=== PATIENT | female | born 1985 | race Caucasian/White ===

== ENCOUNTER 2022-05-07 10:51 | Outpatient (REF) | payer MEDICAID, OTHER, SELFPAY ==
--- NOTE | ~2022-05-07 | MM_ITS ---
EXAMINATION: MM DIAGNOSTIC DIGITAL BREAST TOMOSYNTHESIS, BILATERAL TARGETED LEFT BREAST ULTRASOUND CLINICAL INFORMATION: Left breast lump 5 o'clock position for 2 weeks. No nipple discharge. The lifetime risk of breast cancer based on the Tyrer-Cuzick Model is 13.4%. COMPARISON: Mammography: None. TECHNIQUE: Digital breast tomosynthesis is performed in both the craniocaudal and mediolateral oblique views along with computer-aided detection (CAD). Synthesized 2D images are generated from the tomosynthesis. Left breast exaggerated craniocaudal view also performed. Targeted left breast ultrasound. FINDINGS: The breasts are extremely dense, which lowers the sensitivity of mammography (ACR BI-RADS breast composition Category d). There are no significant masses, abnormal calcifications, or other abnormalities. Targeted left breast ultrasound did not demonstrate any abnormal cystic or solid lesions. No region of abnormal distal sound shadowing was appreciated. No edematous change within the parenchyma is noted. Results are discussed with the patient at time of visit. MM/MM tomosynthesis diagnostic BI IMPRESSION: No mammographic or ultrasound evidence of malignancy. ASSESSMENT: BI-RADS 1: Negative. RECOMMENDATION: Clinical management of palpable abnormality. Yearly screening mammogram at age 39. This patient's information was entered into a reminder system with a target due date for their next mammogram.
== END 2022-05-07 10:52 | disposition home or self-care (01) ==
LOC: HO.MAMMO 10:51
PROVIDERS: Visit Provider Pediatrics
DX: N63.23 Unspecified lump in the left breast, lower outer quadrant (principal)
CPT/HCPCS: 76642; 77062; 77066

== ENCOUNTER 2024-02-02 16:15 | Outpatient (REF) | payer MEDICAID, OTHER, SELFPAY ==
[2024-02-03 06:04] LABS: CT PCR NOT DETECTED (Not Detect.); NG PCR NOT DETECTED (Not Detect.)
== END 2024-02-02 16:16 | disposition home or self-care (01) ==
LOC: HO.CHCLNP 16:15
PROVIDERS: Visit Provider Pediatrics
DX: N76.0 Acute vaginitis (principal)
CPT/HCPCS: 87491; 87591

== ENCOUNTER 2025-01-25 17:34 | Outpatient (REF) | payer MEDICAID, OTHER, SELFPAY ==
--- OUTSIDE RECORDS SUMMARY | 2025-01-25 16:00 | XMS_ITS | Encounter Summary ---
Author Organization [employer] Address [address] [facility] [address] [place] [address] Care Team Providers Care Pets Salesperson Name Role Phone Patricia Zheng MD Primary Care Provider [phone] Encounter Details Date Type Department Care Team ([facility] st Contact Info) Description 01/25/2025 4:00 PM EDT Office Visit [facility] [address] [place], [place] [phone] Patricia Zheng MD [address] [place] [address] Prediabetes (Primary Dx); Flank pain Social History [...] Patient Position: Sitting, BP Cuff Size: Adult) [id number] Temp 99.2 ??F (37.3 ??C) (Oral) Resp [...] documented in this encounter Plan of Treatment Scheduled Orders Name Type Priority Associated Diagnoses Orde r Schedule Culture, Urine, Routine Microbiology Routine Flank pain Ordered: 01/25/2025 CBC auto differential Lab Routine Flank pain [...] Routine 01/25/2025 4:35 PM EDT Flank pain documented in this [...] Media Lot # [id number] Lot# Expiration Date [id number] Urine 01/25/2025 4:35 PM EDT Patricia Zheng MD POINT OF CARE TEST ENTER/EDIT ORDERABLES Final Result documented in this encounter Visit Diagnoses Diagnosis Prediabetes- Primary Other abnormal glucose Flank pain Abdominal pain, unspecified site documented in this encounter Additional Health Concerns Assessment Noted Time PHQ-9 Depression Total Score: 1 04/24/20 22 10:31 AM EST documented as of this encounter Care Teams Pets Salesperson Relationship Specialty Start Date End Date Patricia Zheng MD [address] [place] [id number] PCP - General Family Medicine 11/25/16 documented as of this encounter
--- OUTSIDE RECORDS SUMMARY | 2025-01-25 17:37 | XMS_ITS | Clinical Summary ---
Author Organization [facility] Address [address] [place] [address] Care Team Providers Care Pastrycook'S Assistant Name Role Phone Lazara Foreman MD Primary Care Provider Surgical History Surgery Date Site/Laterality Comments CHOLECYSTECTOMY 2016 PROCEDURE: HISTORICAL CHOLECYSTECTOMY OTHER SURGICAL HISTORY 09/2016 PROCEDURE: GI ENDOSCOPIC ULTRASOUND; COMMENT: upper endoscopic ultrasound for drainage of pancreatic pseudocyst OTHER SURGICAL HISTORY 2016 PROCEDURE: INSERTION OF CHEST TUBE; COMMENT: left pleural effusion VAGINOSCOPY 2012 PROCEDURE: AK COLPOSCOPY CERVIX VAG LOOP ELTRD BX CERVIX Medical History Medical History Date Comments Necrotizing pancreatitis 09/2016 DX:Necr otizing pancreatitis; COMMENT: requiring drainage Pleural effusion 2016 DX:Pleural effu lora; COMMENT: left . requiring chest tube placement Fibroid uterus 2015 DX:Fibroid uteru s; COMMENT: multiple fibroids noted on u/s Short cervix 02/16/2018 DX:Short cervix; COMMENT: 2015 pt was followed by [facility] (janette) for hx leep, cl measured 2.6 the shortest with NO funneling and remained stable with no intervention needed . Pt also had a +FFN during her . Pt delivered full term Pt did not go in to any labor during her . Family History Medical History Relation Name Comments Diabetes Mother Relation Name Status Comments Mother Social History Tobacco Use Types Packs/Day Years Used Date Smoking Tobacco: Never Smokeless Tobacco: Never Alcohol Use Standard Drinks/Week Comments No 0 (1 standard drink = 0.6 oz pur e alcohol) Comments Unknown Sex and Gender Information Value Date Recorded Sex Assigned at Not on file Legal Sex Female 3:33 PM EST Gender Identity Not on file Sexual Orientation Not on file Obstetrics History Plan of Treatment Health Maintenance Due Date Last Done Comments Breast Cancer Screening 1984 Hepatitis B Vaccines (1 of 3 - 19+ 3-dose series) 2003 Cervical Cancer Screening: P ap Smear 03/07/2021 03/07/2018, 03/07/2018 Depression Screening 05/10/2024 COVID-19 Vaccine (1 - 2023-2 5 season) 2025 Influenza Vaccine (#1) 2025 05/16/2018 DTaP,Tdap,and Td Vaccines (2 - Td or Tdap) 05/16/2028 05/16/2018 RSV Immunization Adult Patients (1 - 1-dose 75+ series) 2059 HIB Vaccines Aged Out No longer eligi ble based on patient's age to complete this topic HPV Vaccines Aged Out No longer eligi ble based on patient's age to complete this topic Hepatitis A Vaccines Aged Out No long er eligible based on patient's age to complete this topic IPV Vaccines Aged Out No longer eligi ble based on patient's age to complete this topic MMR Vaccines Aged Out No longer eligi ble based on patient's age to complete this topic Meningococcal ACWY Vaccine Aged Out N o longer eligible based on patient's age to complete this topic Meningococcal B Vaccine Aged Out No l onger eligible based on patient's age to complete this topic Pneumococcal Vaccine: Pediatrics (0 to 5 Years) and At-Risk Patients (6 to 49 Years) Aged Out No longer eligible b ased on patient's age to complete this topic RSV Immunization Patients Under 20 months Aged Out No longer eligible b ased on patient's age to complete this topic Varicella Vaccines Aged Out No longer eligible based on patient's age to complete this topic Procedures Procedure Name Priority Date/Time Associated Diagnosis Comments PAP SMEAR Routine 03/07/2018 from Last 3 Months or Most Recently Relevant to Health Maintenance Results * Pap smear (03/07/2018) 03/07/2018 Narrative HISTORICAL TESTING LAB RESULTING AGENCY - 03/11/2018 12:50 PM EDT [id number] THINPREP PAP, IMAGED: NEGATIVE FOR SQUAMOUS INTRAEPITHELIAL LESION AND MALIGNANCY . RESULT OF APTIMA HIGH RISK HPV ASSAY: NEGATIVE (SEROTYPES 16,18,31,33,35,39,45,51,52,56,58,59,66,68) [place] ANTONIO(ASCP) (CASE ELECTRONICALLY SIGNED 03 11 2018) ADEQUACY: SATISFACTORY. ENDOCERVICAL/TRANSFORMATION ZONE COMPONENT PRESENT. SOURCE: THINPREP PAP HPV ANY DX: REFLEX 16 AND 18, CERVICAL, IMAGED: CLINICAL INFORMATION: HPV ANY DIAGNOSIS. , LMP 11/29/2017, PAP HX NEG [Z12.4] us Yumiko Rohan [facility] LAB CYTOLOGY ORDERABLES Final Result HISTORICAL TESTING LAB RESULTING AGENCY from Last 3 Months or Most Recently Relevant to Health Maintenance Care Teams Pastrycook'S Assistant Relationship Specialty Start Date End Date Lazara Foreman MD [address] [place] [address] PCP - General Internal Medicine 07/27/17
--- OUTSIDE RECORDS SUMMARY | 2025-01-25 17:37 | XMS_ITS | Encounter Summary ---
Author Organization [employer] Address [address] [facility] [address] [place] [address] Care Team Providers Care Bond Trader Name Role Phone Patricia Zheng MD Primary Care Provider [phone] Encounter Details Date Type Department Care Team (Latest Contact Info) Description 01/25/2025 Travel Social History Tobacco Use Types Packs/Day Years [...] AM EDT documented as of this encounter Plan of Treatment Not on file documented as of this encounter Visit Diagnoses Not on filedocumented in this encounter Additional Health Concerns Assessment Noted Time PHQ-9 Depression Total Score: 1 04/24/20 22 10:31 AM EST documented as of this encounter Care Teams Bond Trader Relationship Specialty Start Date End Date Patricia Zheng MD [address] [place] [address] PCP - General Family Medicine 11/25/16 documented as of this encounter
--- OUTSIDE RECORDS SUMMARY | 2025-01-25 17:37 | XMS_ITS | Encounter Summary ---
Author Organization [employer] Address [address] [facility] [address] [place] [address] Care Team Providers Care Barrel Cleaner Name Role Phone Patricia Zheng MD Primary Care Provider [phone] Encounter Details Date Type Department Care Team ([facility] st Contact Info) Description 07/30/[address] [facility] [address] [place] [address] Patricia Zheng MD [address] [place] [address] Social History Tobacco Use Types Packs/Day Years Used Date Smoking Tobacco: Never Passive Smoke Exposure: Never Smokeless Tobacco: Never Alcohol Use Standard Drinks/Week Comments Never 0 (1 standard drink = 0.6 oz pur e alcohol) Depression Answer Date Recorded Patient Health Questionnaire-9 Score 1 04/24/2022 Depression Answer Date Recorded Patient Health Questionnaire-2 Score 0 04/24/2022 Comments Unknown Sex and Gender Information Value Date Recorded Sex Assigned at Female 03/09/2022 10:31 AM EDT Legal Sex Female 10:31 AM EDT Gender Identity Female 03/09/2022 10:31 AM EDT Sexual Orientation Don't know 03/09/2022 10 :31 AM EDT COVID-19 Exposure Response Date Recorded In the last 10 days, have yo u been in contact with someone who was confirmed or suspected to have Coronavirus/COVID-19? No / Unsure 07/31/2022 9:01 AM EDT documented as of this encounter Plan of Treatment Not on file documented as of this encounter Visit Diagnoses Not on filedocumented in this encounter Additional Health Concerns Assessment Noted Time PHQ-9 Depression Total Score: 1 04/24/20 22 10:31 AM EST documented as of this encounter Care Teams Barrel Cleaner Relationship Specialty Start Date End Date Patricia Zheng MD [address] [place] [address] PCP - General Family Medicine 11/25/16 documented as of this encounter
--- OUTSIDE RECORDS SUMMARY | 2025-01-25 17:37 | XMS_ITS | Clinical Summary ---
Author Organization [facility] Address [address] [place] [address] Care Team Providers Care Flame Channeler Name Role Phone Patricia Zheng Primary Care Provider [phone] Allergies Active Allergy Reactions Criticality Noted Date Comments Kiwi (Actinidia Chinensis) Itching 3 Tetracycline Unknown 01/06/2021 Medications Proctosol HC 2.5 % rectal cream APPLY A THIN LAYER TO THE AFFECTED AREA(s) TWO TO FOUR TIMES DAILY FOR HEMORRHOIDS. 1 Active melatonin 3 mg tablet TAKE ONE TABLET BY MOUTH ONE HOUR BEFORE BEDTIME. 1 Active Xulane 150-35 mcg/24 hr apply 1 patch by transdermal route every week 1 Active Active Problems Problem Noted Date Diagnosed Date Palpitations 07/24/2022 Prediabetes 07/24/2022 Social History Tobacco Use Types Packs/Day Years Used Date Smoking Tobacco: Never Smokeless Tobacco: Never Tobacco Cessation:Counseling Given: Not Answered Alcohol Use Standard Drinks/Week Comments Not Currently 0 (1 standard drink = 0.6 oz pur e alcohol) Comments Unknown Sex and Gender Information Value Date Recorded Sex Assigned at Not on file Legal Sex Female 1:51 PM EDT Gender Identity Not on file Sexual Orientation Not on file Last Filed Vital Signs Vital Sign Reading Time Taken Comments Blood Pressure 99/64 10/20/2022 2:30 PM EDT Pulse 74 10/20/2022 2:30 PM EDT Temperature - - Respiratory Rate 16 10/20/2022 2:30 PM EDT Oxygen Saturation 96% 10/20/2022 2:30 PM EDT Inhaled Oxygen Concentration - - Weight 59.9 kg (132 lb 0.9 oz) 10/20/2022 2:30 P M EDT Height 152.4 cm (5') 10/20/2022 2:30 PM EDT Body Mass Index 25.79 10/20/2022 2:30 PM EDT Plan of Treatment Health Maintenance Due Date Last Done Comments Cervical Cancer Screening 1984 HPV and Pap Smear 1984 Hepatitis C Screening 1984 Pap Smear 1984 Varicella Vaccines (1 of 2 - 13+ 2-dose series) 1997 Hepatitis B Vaccines (1 of 3 - 19+ 3-dose series) 2003 Mammogram 05/07/2024 05/07/2022, 04/10, 05/07/2022, Additional history exists Alcohol/Substance Use Screening 05/10/2024 Depression Screening and Follow-Up 05/10/2024 [employer] Annual Screening 05/10/2024 COVID-19 Vaccine ( season) 2025 07/03/2021, 10/18/2020, 09/20/2020 Influenza Vaccine (#1) 2025 , 03/23/2019, 05/16/2018, Additional history exists DTaP,Tdap,and Td Vaccines (2 - Td or Tdap) 05/16/2028 05/16/2018 RSV Vaccine (60+ years old and patients) (1 - 1-dose 75+ series) 2059 HIV Screening Completed 01/02/2021 Pneumococcal Vaccine: Pediatric (0-5 Years) and At-Risk Patients (6-50 Years) Aged Out No longer eligible based on patient's age to complete this topic Insurance [employer] HSNO/FREE CARE Care Teams Flame Channeler Relationship Specialty Start Date End Date Patricia Zheng [address] [place] [id number] PCP - General Internal Medicine 11/25/20
--- OUTSIDE RECORDS SUMMARY | 2025-01-25 17:37 | XMS_ITS | Encounter Summary ---
Author Organization [employer] Address [address] [facility] [address] [place] [address] Care Team Providers Care Diversified Crops I Farmworker Name Role Phone Patricia Zehng MD Primary Care Provider [phone] Reason for Visit * Reason Onset Date Comments Nurse Triage 01/25/2025 Encounter Details Date Type Department Care Team (Late st Contact Info) Description 01/25/2025 Telephone [facility] [address] [place] [address] Patricia Zheng MD [address] [place] [address] Nurse Triage Social History Tobacco Use Types Packs/Day Years [...] AM EDT documented as of this encounter Miscellaneous Notes * Telephone Encounter - Malinda Guillory RN - 01/25/2025 10:32 AM EDT 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 Call returned to Chaparrita Torres to triage below at [phone]. Per pt having right upper quadrant pain onto flank x 4 days. Pt also having chills. Pt denies any pain with passing urine, odor or dark color. Having frequency. Denies any N/V. Pt started menses on Wednesday. Pt states having only spotting today. Pt denies any other vaginal dischargeor irritation. Pt agrees to sick onsite with PCP. Aware of MH not active. Aware of self pay form. Reviewed home care advise, ER precautions and reasons to call back. Protocol Used: Abdominal Pain - Upper (Adult) Protocol-Based Disposition: See in Office or Video Visit Today or Tomorrow Future Appointments Date Time Provider Department Center 01/25/2025 4:00 PM Patricia Zheng MD [facility] Video visit offer not recorded Positive Triage Question: * Moderate pain that comes and goes (cramps) lasts > 24 hours * All higher-acuity triage questions were negative Care Advice Discussed: * Reassurance and Education - Stomach Pain * Antacid Medicine * Drink Clear Fluids * Avoid Aspirin and NSAIDs * Stop Smoking * Food Recommendations to Reduce Reflux * Reasons To Call Back - Severe pain present over 1 hour - Constant pain present over 2 hours - You become worse * Telephone Encounter - Marilou Hodgson - 01/25/2025 9:18 AM EDT Symptoms: Abdominal Pain - Female - Not , Flank Pain Outcome: Schedule an urgent appointment (within 4 hours) or talk to a nurse or provider soon Reason: Getting worse The caller accepted this outcome. Contact pt at [phone] Need horizontal drill operator documented in this encounter Plan of Treatment Not on file documented as of this encounter Visit Diagnoses Not on filedocumented in this encounter Additional Health Concerns Assessment Noted Time PHQ-9 Depression Total Score: 1 04/24/20 22 10:31 AM EST documented as of this encounter Care Teams Diversified Crops I Farmworker Relationship Specialty Start Date End Date Patricia Zheng MD [address] [place] [address] PCP - General Family Medicine 11/25/16 documented as of this encounter
--- OUTSIDE RECORDS SUMMARY | 2025-01-25 17:37 | XMS_ITS | Clinical Summary ---
Author Organization [employer] Address [address] [place] [address] [address] [place] [address] Care Team Providers Care Tomographic Tech Name Role Phone Patricia Zheng MD Primary Care Provider [phone] Allergies Active Allergy Reactions Criticality Noted Date Comments Amoxicillin Hives Low 10/08/2016 Kiwi Extract 05/20/2022 Tetracycline Itching Low 11/25/2016 Other reaction(s): HIVES,ITCHY Medications norelgestromin- ethinyl estradiol (Xulane) 150-35 MCG/24HR Place 1 patch on the skin once a week. 2 Active multivitamin (Theragran) tablet Take 1 tablet by mouth. 9 Active ferrous sulfate 325 (65 Fe) MG tablet 1 tablet at bed time. 2 Active glucose blood (FREESTYLE LITE) test strip every 12 (twelve) hours. 1 Active Glycerin-Hyprom ellose-PEG 400 0.2-0.2-1 % solutionIndicat ions:Pterygium of eye, left Administer 1 drop into affected eye(s) 4 times daily. 30 mL 3 Active hydrocortisone (Proctosol HC) 2.5 % rectal cream APPLY A THIN LAYER TO THE AFFECTED AREA(s) TWO TO FOUR TIMES DAILY FOR HEMORRHOIDS. 1 Active melatonin 3 MG tablet TAKE ONE TABLET BY MOUTH ONE HOUR BEFORE BEDTIME. 1 Active polyvinyl alcohol (Liquifilm Tears) 1.4 % ophthalmic solution PLACE ONE DROP IN THE AFFECTED EYE(S) FOUR TIMES DAILY 3 Active ketoconazole (NIZOral) 2 % shampoo Apply topically 2 (two) times a week. 120 mL 11 4 Active omeprazole (PriLOSEC) [address] capsule TAKE 1 CAPSULE BY MOUTH EVERY DAY IN THE MORNING 90 capsule 4 Active acetaminophen (Tylenol) 500 MG tablet Take 2 tablets (1,000 mg) by mouth every 8 (eight) hours if needed for moderate pain or fever for up to 100 doses. 50 tablet 3 4 Active ibuprofen 400 MG tablet Take 1 tablet (400 mg) by mouth every 8 (eight) hours if needed for moderate pain or fever for up to 360 doses. 90 tablet 3 4 Active nitrofurantoin, macrocrystal-mo nohydrate, (Macrobid) 100 MG capsule Take 1 capsule (100 mg) by mouth 2 times daily for 5 days. 10 capsule 5 01/31/20 25 Active Active Problems Problem Noted Date Diagnosed Date Palpitations 07/24/2022 Pterygium of eye, left 05/20/2022 Assessment & Plan (05/20/2022 9:27 AM EST): Left eye pterygium, discussed nature of this, using glasses and artificial eye gtt. Will send to optometry. Normal conjunctiva on exam and nl ROM. Breast lump on left side at 5 o'clock position 1 06/25/2021 Overview (04/24/2022): Palpable lump on exam, cyst? calcification? etc Breast US of left breast plus diagnostic mammo ordreed today,Pateint to not miss it. call her with results ariel. Prediabetes 01/16/2021 Pseudocyst of pancreas 12/25/2016 Encounters Date Type Department Care Team Description 01/25/2025 4:00 PM EDT Office Visit [facility] [address] [place] [address] Patricia Zheng MD Prediabetes (Primary Dx); Flank pain 01/25/2025 Travel 01/25/2025 Telephone [facility] MEDICINE [address] [place] [address] Patricia Zheng MD Nurse Triage 01/03/2025 11:00 AM EDT Office Visit [facility] [address] [place] [address] Migel, Ashlee, OD Meibomian gland disease of both eyes, unspecified eyelid (Primary Dx); Nevus of left eyelid; Pterygium of eye, left; Regular astigmatism of both eyes 01/03/2025 Travel 12/20/2024 5:00 PM EDT Office Visit [facility] [address] [place] [address] Catalina Zavala NP Dizziness (Primary Dx) 12/20/2024 Travel from Last 3 Months Immunizations Immunization Administration Dates Next Due Influenza Injectable Quadriv alant Preservative Free IIV4 MDCK 05/16/2018 Influenza injectable quadriv alent IIV4 with preservative 03/23/2019,03/24/2017 Influenza injectable quadriv alent preservative free 03/12/2022,03/16/2018 Influenza, seasonal, injecta ble, preservative free 02/01/2024,04/05/2016 Moderna Covid-19 Vaccine 12+ 10/18/2020, 10/18/2020,09/20/2020,2020 Tdap 05/16/2018 Family History Medical History Relation Name Comments Diabetes Mother Endometrial cancer Sister Relation Name Status Comments Mother Sister Social History Tobacco Use Types Packs/Day Years Used Date Smoking Tobacco: Never Passive Smoke Exposure: Never Smokeless Tobacco: Never Tobacco Cessation:Counseling Given: Not Answered Alcohol Use Standard Drinks/Week Comments Never 0 (1 standard drink = 0.6 oz pur e alcohol) Depression Answer Date Recorded Patient Health Questionnaire-9 Score 1 04/24/2022 Housing Stability Answer Date Recorded What is your housing situation today? I have jatin sing 03/03/[address] you li [...] Don't know 03/09/2022 10 :31 AM EDT Last Filed Vital Signs Vital Sign Reading Time Taken Comments Blood Pressure 119/71 01/25/2025 4:28 PM EDT Pulse 100 01/25/2025 4:28 PM EDT Temperature 37.3 C (99.2 F) 01/25/2025 4:28 PM EDT Respiratory Rate 20 01/25/2025 4:28 PM EDT Oxygen Saturation 99% 12/20/2024 5:03 PM EDT Inhaled Oxygen Concentration - - Weight 56.3 kg (124 lb 3.2 oz) 01/25/2025 4:28 P M EDT Height 152.4 cm (5') 01/25/2025 4:28 PM EDT Body Mass Index 24.26 01/25/2025 4:28 PM EDT Plan of Treatment Health Maintenance Due Date Last Done Comments Disability Screening 1984 Alcohol/Substance Use Screening 1996 Family Planning (PISQ) 1999 HPV Vaccines (1 - 3-dose series) 1999 Hepatitis B Vaccines (1 of 3 - 19+ 3-dose series) 2003 Depression Screening 04/24/2023 04/24/2022, 04/24/20 22 SDOH Screening 04/24/2023 04/24/2022 Mammogram 05/07/2024 05/07/2022, 05/07/2022 COVID-19 Vaccine ( season) 2025 07/03/2021, 10/18/2020, 10/18/2020, Additional history exists Influenza Vaccine (#1) 2025 4, 03/12/2022, 03/23/2019, Additional history exists Diabetes: Hemoglobin A1C 01/31/2025 024, 07/16/2022, 06/19/2021, Additional history exists Cervical Cancer Screening 12/31/2025 HPV/Cotest 12/31/2025 12/31/2020 Pap Smear 12/31/2025 12/31/2020 Tobacco Screening 01/03/2026 01/03/2025 DTaP/Tdap/Td Vaccines (2 - Td or Tdap) 05/16/2028 05/16/2018 Zoster Vaccines (1 of 2) 2034 RSV Patients and Patients Aged 60 years or older (1 - 1-dose 75+ series) 2059 HIV Screening Completed 01/02/2021 Hepatitis C Screening Completed 01/02/2021 HIB Vaccines Aged Out No longer eligi [...] patient's age to complete this topic Meningococcal Vaccine Aged Out No cody maggie eligible based on patient's age to complete this topic Pneumococcal Vaccine: Pediatrics (0 to 5 Years) and At-Risk Patients (6 to 49) Years Aged Out No longer eligible based on patient's age to complete this topic RSV under 20 months Aged Out No longe r eligible based on patient's age to complete this topic Rotavirus Vaccines Aged Out No longer eligible based on patient's age to complete this topic Procedures Procedure Name Priority Date/Time Associated Diagnosis Comments POCT URINALYSIS DIPSTICK Routine 01/25/2025 4:35 PM EDT Flank pain POCT GLYCATED HEMOGLOBIN, TOTAL Routine 02/01/2024 12:45 PM EDT Prediabetes BI MAMMOGRAM DIAGNOSTIC TOMOSYNTHESIS BILATERAL Routine 05/07/2022 11:24 AM EST ZZZ HISTORICAL HEPATITIS C AB W/REFL TO HCV RNA, QN, PCR Routine 01/02/2021 3:35 PM EDT HIV 1/2 ANTIGEN/ANTIBODY, FOURTH GENERATION W/RFL Routine 01/02/2021 3:35 PM EDT HPV MRNA E6/E7 Routine 12/31/2020 4:32 PM EDT THINPREP PAP Routine 12/31/2020 4:32 PM EDT from Last 3 Months or Most Recently Relevant to Health Maintenance Results * (ABNORMAL) POCT Urinalysis (01/25/2025 4:35 [...] Media Lot # [id number] Lot# Expiration Date [id number] Urine 01/25/2025 4:35 PM EDT us Patricia Zheng MD POINT OF CARE TEST ENTER/EDIT ORDERABLES Final Result * POCT HGB A1C (02/01/2024 12:45 PM EDT) Hemoglobin A1C 5.6 4.0 - 6.0 % QC Media Lot # [id number] Lot# Expiration Date [id number] Blood 02/01/2024 12:4 5 PM EDT us Patricia Zheng MD POINT OF CARE TEST ENTER/EDIT ORDERABLES Final Result * BI Mammogram Diagnostic Tomosynthesis Left (05/07/2022 11:24 AM EST) Anatomical Region Laterality Modality Breast Bilateral Mammography 05/07/2022 11:2 4 AM EST Narrative 05/07/2022 1:38 PM EST [facility] [address] [place] [address] Mammography Report Signed Patient: Chaparrita Torres MR#: [id number] 95 : 1985 Acct:[id number] Age/Sex: 37 / F ADM Date: 05/07/22 Loc: HO.MAMMO Attending Dr: Patricia Zheng MD Ordering Physician: Patricia Zheng MD Results: 1Ne gative Date of Service: 05/07/22 Follow Up: 1 Year From Orig ina Mammogram Procedure(s): MM tomosynthesis diagnostic BI Accession Number(s): [id number] cc: Patricia Zheng MD EXAMINATION: MM DIAGNOSTIC DIGITAL BREAST TOMOSYNTHESIS, BILATERAL TARGETED LEFT BREAST ULTRASOUND CLINICAL INFORMATION: Left breast lump 5 o'clock position for 2 weeks. No nipple discharge. The lifetime risk of breast cancer based on the Tyrer-Cuzick Model is 13.4%. COMPARISON: Mammography: None. TECHNIQUE: Digital breast tomosynthesis is performed in both the craniocaudal and mediolateral oblique views along with computer-aided detection (CAD). Synthesized 2D images are generated from the tomosynthesis. Left breast exaggerated craniocaudal view also performed. Targeted left breast ultrasound. FINDINGS: The breasts are extremely dense, which lowers the sensitivity of mammography (ACR BI-RADS breast composition Category d). There are no significant masses, abnormal calcifications, or other abnormalities. Targeted left breast ultrasound did not demonstrate any abnormal cystic or solid lesions. No region of abnormal distal sound shadowing was appreciated. No edematous change within the parenchyma is noted. Results are discussed with the patient at time of visit. MM/MM tomosynthesis diagnostic BI IMPRESSION: No mammographic or ultrasound evidence of malignancy. ASSESSMENT: BI-RADS 1: Negative. RECOMMENDATION: Clinical management of palpable abnormality. Yearly screening mammogram at age 39. This patient's information was entered into a reminder system with a target due date for their next mammogram. Dictated By: Geraldo Jackson MD Signed By: <Electronically signed by Geraldo Jackson MD in OV> 05/07/22 1335 DD/ 1124 TD/TT: Industrial Machine System Technician: JAIRO Procedure Note Donotuseinterpreter, Image - 05/07/2022 [facility] [address] [place], [place] [address] Mammography Report Signed Patient: Katharine TorresR#: [id number] 95 : 1985Acct:[id number] Age/Sex: 37 / FADM Date: 05/07/22 Loc: HO.MAMMO Attending Dr: Patricia Zheng MD Ordering Physician: Patricia Zheng MDResults: 1Ne gative Date of Service: 05/07/22Follow Up: 1 Year From Orig inal Mammogram Procedure(s): MM tomosynthesis diagnostic BI Accession Number(s): [id number] cc: Patricia Zheng MD EXAMINATION: MM DIAGNOSTIC DIGITAL BREAST TOMOSYNTHESIS, BILATERAL TARGETED LEFT BREAST ULTRASOUND CLINICAL INFORMATION: Left breast lump 5 o'clock position for 2 weeks. No nipple discharge. The lifetime risk of breast cancer based on the Tyrer-Cuzick Model is 13.4%. COMPARISON: Mammography: None. TECHNIQUE: Digital breast tomosynthesis is performed in both the craniocaudal and mediolateral oblique views along with computer-aided detection (CAD). Synthesized 2D images are generated from the tomosynthesis. Left breast exaggerated craniocaudal view also performed. Targeted left breast ultrasound. FINDINGS: The breasts are extremely dense, which lowers the sensitivity of mammography (ACR BI-RADS breast composition Category d). There are no significant masses, abnormal calcifications, or other abnormalities. Targeted left breast ultrasound did not demonstrate any abnormal cystic or solid lesions. No region of abnormal distal sound shadowing was appreciated. No edematous change within the parenchyma is noted. Results are discussed with the patient at time of visit. MM/MM tomosynthesis diagnostic BI IMPRESSION: No mammographic or ultrasound evidence of malignancy. ASSESSMENT: BI-RADS 1: Negative. RECOMMENDATION: Clinical management of palpable abnormality. Yearly screening mammogram at age 39. This patient's information was entered into a reminder system with a target due date for their next mammogram. Dictated By: Geraldo Jackson MD Signed By: <Electronically signed by Geraldo Jackson MD in OV> 05/07/22 1335 DD/ 1124 TD/TT: Industrial Machine System Technician: JAIRO [facility] External Provider IMG BI PROCEDURES Edited Result - Final * HEPATITIS C AB W/REFL TO HCV RNA, QN, PCR (01/02/2021 3:35 PM EDT) HEPATITIS C ANTIBODY NON-REACT ALETHEA NON-REACT ALETHEA [facility] INDEX 0.01 <1.00 [facility] Comment: HCV antibody was non-reactive. There is no laboratory evidence of HCV infection. In most cases, no further action is required. However, if recent HCV exposure is suspected, a test for HCV RNA (test code 18484) is suggested. For additional information please refer to http://education.NanoPack/faq/KGI51w3 (This link is being provided for informational/ educational purposes only.) 01/02/2021 3:35 PM EDT Peg Bowen CNM HISTORICAL/NON ORDERABLE LABS Final Result [facility] [address] * HIV 1/2 ANTIGEN/ANTIBODY,FOURTH GENERATION W/RFL (01/02/2021 3:35 PM EDT) HIV-1/2 ANTIGEN AND ANTIBODIES, 4TH GENERATION W/ REFLEX NON-REACT ALETHEA NON-REACT ALETHEA [facility] Comment: HIV-1 antigen and HIV-1/HIV-2 antibodies were not detected. There is no laboratory evidence of HIV infection. PLEASE NOTE: This information has been disclosed to you from records whose confidentiality may be protected by state law. If your state requires such protection, then the state law prohibits you from making any further disclosure of the information without the specific written consent of the person to whom it pertains, or as otherwise permitted by law. A general authorization for the release of medical or other information is NOT sufficient for this purpose. For additional information please refer to http://education.Voradius.Vizsafe/faq/JBX621 (This link is being provided for informational/ educational purposes only.) The performance of this assay has not been clinically validated in patients less than 2 years old. 01/02/2021 3:35 PM EDT Peg RIOS LAB BLOOD ORDERABLES Jeanette l Result Performing Organization Address [facility] [place]/ZIP Co de Phone Number [facility] [address] [place] [address], * THINPREP PAP (12/31/2020 4:32 PM EDT) Clinical Information: None given [facility] COMMENT SEE COMMENT [facility] Comment: EXPLANATORY NOTE: The Pap is a screening test for cervical cancer. It is not a diagnostic test and is subject to false negative and false positive results. It is most reliable when a satisfactory sample, regularly obtained, is submitted with relevant clinical findings and history, and when the Pap result is evaluated along with historic and current clinical information. Decal Maker : SEE COMMENT [facility] Comment: DMM, CT(ASCP) CT screening location: [place] [address] Interpretation/R esult: Negative for intraepithelial lesion or malignancy. [facility] LMP: 12/27/20 [facility] Prev. BX: NONE GIVEN [facility] Prev. PAP: NONE GIVEN [facility] Review Decal Maker : SEE COMMENT [facility] Comment: KF, CT(ASCP) CT screening location: [address] [address] SOURCE: None given [facility] Statement Of Adequacy: SEE COMMENT [facility] Comment: Satisfactory for evaluation. Endocervical/transformation zone component present. 12/31/2020 4:32 PM EDT Peg RIOS LAB PATHOLOGY ORDERABLES Final Result Performing Organization Address [facility] [place]/ZIP Co de Phone Number [facility] [address] * HPV mRNA E6/E7 (12/31/2020 4:32 PM EDT) HPV nRNA E6/E7 Not Detected Not Detected [facility] Comment: Methodology: Drama Therapist-Mediated Amplification This assay detects E6/E7 viral messenger RNA (mRNA) from 14 high-risk HPV types (16,18,31,33,35,39,45,51,52,56,58,59,66,68). The analytical performance characteristics of this assay have been determined by [employer]. The modifications have not been cleared or approved by the FDA. This assay has been validated pursuant to the CLIA regulations and is used for clinical purposes. For additional information, please refer to http://education.NanoPack/faq/HDU644e7 (This link if provided for information/ educational purposes only.) 12/31/2020 4:32 PM EDT Peg Bowen [facility] LAB BLOOD ORDERABLES Jeanette l Result [facility] [address] from Last 3 Months or Most Recently Relevant to Health Maintenance Insurance [facility] [place] [id number] Care Teams Tomographic Tech Relationship Specialty Start Date End Date Patricia Zheng MD [address] [place] [address] [place] [address] PCP - General Family Medicine 11/25/16
== END 2025-01-25 17:35 | disposition home or self-care (01) ==
LOC: HO.CHCLNP 17:34
PROVIDERS: Visit Provider Pediatrics
DX: R10.9 Unspecified abdominal pain (principal)
CPT/HCPCS: 87086

== ENCOUNTER 2025-01-26 14:31 | Outpatient (REF) | payer MEDICAID, OTHER, SELFPAY ==
--- OUTSIDE RECORDS SUMMARY | 2025-01-25 16:00 | XMS_ITS | Encounter Summary ---
Author Organization [employer] Address [address] [facility] [address] [place] [address] Care Team Providers Care Plaster Mixer Name Role Phone Patricia Zhneg MD Primary Care Provider [phone] Encounter Details Date Type Department Care Team ([facility] st Contact Info) Description 01/25/2025 4:00 PM EDT Office Visit [facility] [address], [place] [id number] Patricia Zheng MD [address] [place] [address] Prediabetes (Primary Dx); Flank pain Social History Tobacco Use Types Packs/Day Years Used Date Smoking Tobacco: Never Passive Smoke Exposure: Never Smokeless Tobacco: Never Alcohol Use Standard Drinks/Week Comments Never 0 (1 standard drink = 0.6 oz pur e alcohol) Depression Answer Date Recorded Patient Health Questionnaire-9 Score 1 04/24/2022 Housing Stability Answer Date Recorded What is your housing situation today? I have jatin marcus 03/03/[address] you li ve. Do you have problems with any of the following? None of the above 03/03/2023 Food Insecurity Answer Date Recorded Within the past 12 months, y ou worried that your food would run out before you got money to buy more: Sometimes True 2022 Within the past 12 months,th e food you bought just didn't last and you didn't have enough money to get more: Never True 03/03/2023 Transportation Answer Date Recorded In the past 12 months, has l ack of transportation kept you from medical appts, meetings, work or from getting things needed for daily living? No 03/03/2023 Utilities Answer Date Recorded In the past 12 months, has t he electric, gas, oil or water company threatened to shut off services in your home? No 03/03/2023 Depression Answer Date Recorded Patient Health Questionnaire-2 Score 0 04/24/2022 Comments No Sex and Gender Information Value Date Recorded Sex Assigned at Female 03/09/2022 10:31 AM EDT Legal Sex Female 10:31 AM EDT Gender Identity Female 03/09/2022 10:31 AM EDT Sexual Orientation Don't know 03/09/2022 10 :31 AM EDT documented as of this encounter Last Filed Vital Signs Vital Sign Reading Time Taken Comments Blood Pressure 119/71 01/25/2025 4:28 PM EDT Pulse 100 01/25/2025 4:28 PM EDT Temperature 37.3 C (99.2 F) 01/25/2025 4:28 PM EDT Respiratory Rate 20 01/25/2025 4:28 PM EDT Oxygen Saturation - - Inhaled Oxygen Concentration - - Weight 56.3 kg (124 lb 3.2 oz) 01/25/2025 4:28 P M EDT Height 152.4 cm (5') 01/25/2025 4:28 PM EDT Body Mass Index 24.26 01/25/2025 4:28 PM EDT documented in this encounter Progress Notes * Nancy Montero MA - 01/25/2025 4:00 PM EDT * Patricia Zheng MD - 01/25/2025 4:00 PM EDT Subjective Patient ID: Chaparrita Torres is a 39 y.o. female who presents for flank pain. Chaparrita is a 39-year-old female patient of mine here with complaints of right flank pain and epigastric pain that started about a week ago. This is associated with urinary frequency and occasional chills. UA dip today shows trace leukocyte esterase. She is on her. For which there was blood in herurine. Patient denies nausea or vomiting. Has past medical history of prediabetes and history of jama creatitis. Patient is very healthy overall and eats a very healthy. Patient has history of cholecystectomy in the past. Admits to frequent gas passing and burping. Review of Systems Constitutional: Negative for activity change, chills, fever and unexpected weight change. Respiratory: Negative for cough, shortness of breath and wheezing. Cardiovascular: Negative for chest pain, palpitations and leg swelling. Gastrointestinal: Positive for abdominal pain. Negative for abdominal distention, blood in stool, constipation, diarrhea, nausea and vomiting. Endocrine: Negative for polydipsia and polyuria. Genitourinary: Negative for decreased urine volume, difficulty urinating, dysuria and hematuria. Musculoskeletal: Negative for arthralgias and gait problem. Skin: Negative for color change and rash. Neurological: Negative for dizziness and headaches. Hematological: Negative for adenopathy. Psychiatric/Behavioral: Negative for dysphoric mood, hallucinations, sleep disturbance and suicidalideas. The patient is not nervous/anxious. Objective BP 119/71 (BP Location: Left arm, Patient Position: Sitting, BP Cuff Size: Adult) [id number] Temp 99.2 ??F (37.3 ??C) (Oral) Resp 20 Ht 5' (1.524 m) Wt 124 lb 3.2 oz (56.3 kg) BMI 24.26 kg/m?? Physical Exam Vitals reviewed. Constitutional: General: She is not in acute distress. Appearance: Normal appearance. She is not ill-appearing. HENT: Head: Normocephalic. Right Ear: Tympanic membrane and ear canal normal. Left Ear: Tympanic membrane and ear canal normal. Nose: Nose normal. Mouth/Throat: Mouth: Mucous membranes are moist. Pharynx: No oropharyngeal exudate or posterior oropharyngeal erythema. Eyes: Extraocular Movements: Extraocular movements intact. Conjunctiva/sclera: Conjunctivae normal. Pupils: Pupils are equal, round, and reactive to light. Cardiovascular: Rate and Rhythm: Normal rate and regular rhythm. Pulses: Normal pulses. Heart sounds: Normal heart sounds. Pulmonary: Effort: Pulmonary effort is normal. No respiratory distress. Breath sounds: Normal breath sounds. No wheezing. Abdominal: General: Bowel sounds are normal. There is no distension. Palpations: Abdomen is soft. There is no mass. Tenderness: There is no abdominal tenderness. There is right CVA tenderness. There is no left CVA tenderness, guarding or rebound. Musculoskeletal: General: Normal range of motion. Cervical back: Normal range of motion. Right lower leg: No edema. Left lower leg: No edema. Skin: General: Skin is warm. Capillary Refill: Capillary refill takes less than 2 seconds. Findings: No rash. Neurological: General: No focal deficit present. Mental Status: She is alert and oriented to person, place, and time. Psychiatric: Mood and Affect: Mood normal. Behavior: Behavior normal. Thought Content: Thought content normal. Judgment: Judgment normal. Assessment/Plan Diagnoses and all orders for this visit: Prediabetes Comments: Recheck A1c as well as labs due to abdominal pain and frequency of urine. Call patient with result.PE scheduled with me. Orders: - Hemoglobin A1c; Future Flank pain Comments: UA shows questionable UTI. Macrobid daily x 5 days started, increase water intake. Send urine for culture. Change antibiotic if needed. Check labs. Orders: - POCT Urinalysis - Culture, Urine, Routine - CBC auto differential; Future - Basic Metabolic Panel; Future - Hepatic Function Panel; Future - TSH W/Reflex to FT4; Future - Lipase; Future Other orders - nitrofurantoin, macrocrystal-monohydrate, (Macrobid) 100 MG capsule; Take 1 capsule (100 mg) by mouth 2 times daily for 5 days. documented in this encounter Plan of Treatment Upcoming Encounters Date Type Department Care Team (Late st Contact Info) Description 02/13/2025 9:15 AM EDT Office Visit [facility] [address] [place] [address] Patricia Zheng MD [address] [place] [address] Pending Results Name Type Priority Associated Diagnoses Date /Time Culture, Urine, Routine Microbiology Routine Flank pain 01/25/2025 4:31 PM EDT Scheduled Orders Name Type Priority Associated Diagnoses Orde r Schedule CBC auto differential Lab Routine Flank pain Expected: 01/25/2025 (Approximate), Expires: 01/25/2026 Basic Metabolic Panel Lab Routine Flank pain Expected: 01/25/2025 (Approximate), Expires: 01/25/2026 Hepatic Function Panel Lab Routine Flank pain Expected: 01/25/2025 (Approximate), Expires: 01/25/2026 TSH W/Reflex to FT4 Lab Routine Flank pain Expected: 01/25/2025 (Approximate), Expires: 01/25/2026 Lipase Lab Routine Flank pain Expected: 01/25/2025, Expires: 01/25/2026 Hemoglobin A1c Lab Routine Prediabetes Expected: 01/25/2025 (Approximate), Expires: 01/25/2026 documented as of this encounter Procedures Procedure Name Priority Date/Time Associated Diagnosis Comments POCT URINALYSIS DIPSTICK Routine 01/25/2025 4:35 PM EDT Flank pain CULTURE, URINE, ROUTINE Routine 01/25/2025 4:31 PM EDT Flank pain documented in this encounter Results * (ABNORMAL) POCT Urinalysis (01/25/2025 4:35 PM EDT) Color, UA Yellow Clarity, UA Clear Glucose, UA Negative Bilirubin, UA Negative Ketones, UA Negative Spec Grav, UA 1.005 Blood, UA Positive(A) Negative, None Detected Comment:small pH, UA 6.0 Protein, UA Negative Urobilinogen, UA 1.0 Leukocytes, UA Trace Negative, Rare, Trace Nitrite, UA Negative(A) Negative, None Detected Appearance, UA clear QC Media Lot # [id number] Lot# Expiration Date [id number] Urine 01/25/2025 4:35 PM EDT us Patricia Zheng MD POINT OF CARE TEST ENTER/EDIT ORDERABLES Final Result documented in this encounter Visit Diagnoses Diagnosis Prediabetes- Primary Other abnormal glucose Flank pain Abdominal pain, unspecified site documented in this encounter Additional Health Concerns Assessment Noted Time PHQ-9 Depression Total Score: 1 04/24/20 22 10:31 AM EST documented as of this encounter Care Teams Plaster Mixer Relationship Specialty Start Date End Date Patricia Zheng MD [address] [place] [address] PCP - General Family Medicine 11/25/16 documented as of this encounter
--- OUTSIDE RECORDS SUMMARY | 2025-01-26 14:38 | XMS_ITS | Clinical Summary ---
Author Organization [employer] Address [address] [place] [address] 7[address] [place] [address] Care Team Providers Care Supervisor Scrap Preparation Name Role Phone Patricia Zheng MD Primary Care Provider [phone] Allergies Active Allergy Reactions Criticality Noted Date [...] Description 01/25/2025 4:00 PM EDT Office Visit [facility] CHC MED & PEDS [address] [place] [address] Patricia Zheng MD Prediabetes (Primary Dx); Flank pain 01/25/2025 Travel 01/25/2025 Telephone [facility] MEDICINE [address] [place] [address] Patricia Zheng MD Nurse Triage 01/03/2025 11:00 AM EDT Office Visit [facility] OPTOMETRY [address] [place] [address] Migel, Ashlee, OD Meibomian gland disease of both eyes, unspecified eyelid (Primary Dx); Nevus of left eyelid; Pterygium of eye, left; Regular astigmatism of both eyes 01/03/2025 Travel 12/20/2024 5:00 PM EDT Office Visit [facility] WALK-IN CENTER [address] [place] [address] Catalina Zavala NP Dizziness (Primary Dx) 12/20/2024 [...] 01/25/2025 4:28 PM EDT Plan of Treatment Upcoming Encounters Date Type Department Care Team ([facility] st Contact Info) Description 02/13/2025 9:15 AM EDT Office Visit [facility] MED & PEDS [address] [place] [address] Patricia Zheng MD [address] [place] [address] Health Maintenance Due Date Last Done Comments Disability Screening 1984 Alcohol/Substance Use Screening 1996 Family Planning (PISQ) 1999 HPV Vaccines (1 - 3-dose series) 1999 Hepatitis B Vaccines (1 of 3 - 19+ 3-dose series) 2003 Depression Screening 04/24/2023 04/24/2022, 04/24/20 SDOH Screening 04/24/2023 04/24/2022 Mammogram 05/07/2024 05/07/2022, 05/07/2022 COVID-19 Vaccine ( season) 2025 07/03/2021, 10/18/2020, 10/18/2020, Additional history exists Influenza Vaccine (#1) 2025 , 03/12/2022, 03/23/2019, Additional history exists Diabetes: Hemoglobin [...] Routine 01/25/2025 4:31 PM EDT Flank pain POCT GLYCATED HEMOGLOBIN, [...] Media Lot # [id number] Lot# Expiration Date [id number] Urine 01/25/2025 4:35 PM EDT Patricia Zheng MD POINT OF CARE TEST ENTER/EDIT ORDERABLES Final Result * POCT HGB A1C (02/01/2024 12:45 PM EDT) Hemoglobin A1C 5.6 4.0 - 6.0 % QC Media Lot # [id number] Lot# Expiration Date [id number] Blood 02/01/2024 12:4 5 PM EDT Patricia Zheng MD POINT OF CARE TEST ENTER/EDIT ORDERABLES Final Result * BI Mammogram Diagnostic Tomosynthesis Left (05/07/2022 11:24 AM EST) Anatomical Region Laterality Modality Breast Bilateral Mammography 05/07/2022 11:2 4 AM EST Narrative 05/07/2022 1:38 PM EST [facility] [address] [place] [address] Mammography Report Signed Patient: Chaparrita Torres MR#: [id number] 95 : 1985 Acct:[id number] Age/Sex: 37 / F ADM Date: 05/07/22 Loc: HO.MAMMO Attending Dr: Patricia Zheng MD Ordering Physician: Patricia Zheng MD Results: 1Ne gative Date of Service: 05/07/22 Follow Up: 1 Year From [facility] Mammogram Procedure(s): MM tomosynthesis diagnostic BI Accession Number(s): [id number] cc: Patricia Zheng MD EXAMINATION: MM DIAGNOSTIC [...] in OV> 05/07/22 1335 DD/ 1124 TD/TT: Firer Powerhouse: SK Procedure Note Donotuseinterpreter, Image - 05/07/2022 [facility] [address] [place], [place] [address] Mammography Report Signed Patient: Katharine TorresR#: [id number] 95 : 1985Acct:[id number] Age/Sex: 37 / FADM Date: 05/07/22 Loc: HO.MAMMO Attending Dr: Patricia Zheng MD Ordering Physician: Patricia Zheng MDResults: 1Ne gative Date of Service: 05/07/22Follow Up: 1 Year From Orig inal Mammogram Procedure(s): MM tomosynthesis diagnostic BI Accession Number(s): [id number] cc: Patricia Zheng MD EXAMINATION: MM DIAGNOSTIC [...] in OV> 05/07/22 1335 DD/ 1124 TD/TT: Firer Powerhouse: JAIRO [facility] External Provider IMG BI PROCEDURES Edited Result - Final * HEPATITIS C AB W/REFL TO HCV RNA, QN, PCR (01/02/2021 3:35 PM EDT) HEPATITIS C ANTIBODY NON-REACT ALETHEA NON-REACT ALETHEA [facility] INDEX 0.01 <1.00 [facility] Comment: HCV antibody was non-reactive. There is no laboratory evidence of HCV infection. In most cases, no further action is required. However, if recent HCV exposure is suspected, a test for HCV RNA (test code 49184) is suggested. For additional information please refer to http://education.Qiandao.Deminos/faq/SOL18e0 (This link is being provided for informational/ educational purposes only.) 01/02/2021 3:35 PM EDT Peg Bowen CNM HISTORICAL/NON ORDERABLE LABS Final Result [facility] [address] * HIV 1/2 ANTIGEN/ANTIBODY,FOURTH GENERATION W/RFL (01/02/2021 3:35 PM EDT) HIV-1/2 ANTIGEN AND ANTIBODIES, 4TH GENERATION W/ REFLEX NON-REACT ALETHEA NON-REACT ALETHEA [facility] Comment: HIV-1 antigen and HIV-1/HIV-2 [...] purpose. For additional information please refer to http://education.Our Security Team/faq/NZG814 (This link is being provided for informational/ educational purposes only.) The performance of this assay has not been clinically validated in patients less than 2 years old. 01/02/2021 3:35 PM EDT Peg Bowen [facility] BLOOD ORDERABLES Jeanette conway Result [facility] [address] [place] [address], * THINPREP PAP (12/31/2020 4:32 PM EDT) Clinical Information: None given [facility] COMMENT SEE COMMENT [facility] [...] along with historic and current clinical information. Patient Account Analyst : SEE COMMENT [facility] Comment: DMM, CT(ASCP) CT screening location: [address] [address] Interpretation/R esult: Negative for intraepithelial lesion or malignancy. [facility] LMP: 12/27/20 [facility] Prev. BX: NONE GIVEN [facility] Prev. PAP: NONE GIVEN [facility] Review Patient Account Analyst : SEE COMMENT [facility] Comment: KF, CT(ASCP) CT screening location: [facility] [address] SOURCE: None given [facility] Statement Of Adequacy: SEE COMMENT [facility] Comment: Satisfactory for evaluation. Endocervical/transformation zone component present. 12/31/2020 4:32 PM EDT Peg Bowen [facility] PATHOLOGY ORDERABLES Final Result Performing Organization Address [facility] Co de Phone Number [facility] [address] * HPV mRNA E6/E7 (12/31/2020 4:32 PM EDT) HPV nRNA E6/E7 Not Detected Not Detected [facility] Comment: Methodology: Turkish Rubber-Mediated Amplification This assay detects E6/E7 viral messenger RNA (mRNA) from 14 high-risk HPV types (16,18,31,33,35,39,45,51,52,56,58,59,66,68). The analytical performance characteristics of this assay have been determined by [employer]. The modifications have not been cleared or approved by the FDA. This assay has been validated pursuant to the CLIA regulations and is used for clinical purposes. For additional information, please refer to http://education.Our Security Team/faq/JHC409r7 (This link if provided for information/ educational purposes only.) 12/31/2020 4:32 PM EDT Peg Bowen [facility] BLOOD ORDERABLES Jeanette l Result Performing Organization Address [facility] Co de Phone Number [facility] [address] from Last 3 Months or Most Recently Relevant to Health Maintenance Insurance [employer] [facility] Care Teams Supervisor Scrap Preparation Relationship Specialty Start Date End Date Patricia Zheng MD [address] [place] [address] PCP - General Family Medicine 11/25/16
--- OUTSIDE RECORDS SUMMARY | 2025-01-26 14:38 | XMS_ITS | Encounter Summary ---
Author Organization [employer] Address [address] [facility] [address] [place] [address] Care Team Providers Care Supervisor Stone Name Role Phone Patricia Zheng MD Primary Care Provider [phone] Encounter Details Date Type Department Care Team ([facility] Contact Info) Description 07/30/2022 Telephone [facility] MEDICINE [address] [place] [address] Patricia Zheng MD [address] [place] [address] Social History Tobacco Use Types Packs/Day Years [...] as of this encounter Plan of Treatment Upcoming Encounters Date Type Department Care Team ([facility] Contact Info) Description 02/13/2025 9:15 AM EDT Office Visit [facility] CHC MED & PEDS [address] [place] [address] Patricia Zheng MD [address] [place] [address] documented as of this encounter Visit Diagnoses Not on filedocumented in this encounter Additional Health Concerns Assessment Noted Time PHQ-9 Depression Total Score: 1 04/24/20 22 10:31 AM EST documented as of this encounter Care Teams Supervisor Stone Relationship Specialty Start Date End Date Patricia Zheng MD [address] [place] [address] PCP - General Family Medicine 11/25/16 documented as of this encounter
--- OUTSIDE RECORDS SUMMARY | 2025-01-26 14:38 | XMS_ITS | Encounter Summary ---
Author Organization [employer] Address [address] [facility] [address] [place] [address] Care Team Providers Care Rn Lvn Name Role Phone Patricia Zheng MD Primary Care Provider [phone] Reason for Visit * Reason Onset Date Comments Nurse Triage 01/25/2025 Encounter Details Date Type Department Care Team (Late st Contact Info) Description 01/25/[address] [facility] MEDICINE [address] [place] [address] Patricia Zheng MD [address] [place] [address] Nurse Triage Social History Tobacco Use Types [...] RN - 01/25/2025 10:32 AM EDT No remote broadcast technician needed as this justowriter operator speaks Lithuanian. Call returned to Chaparrita Torres to triage below at [phone]. Per pt having right upper quadrant pain [...] Center 01/25/2025 4:00 PM Patricia Zheng MD [facility] Video visit offer not [...] You become worse * Telephone Encounter - aMrilou Hodgson - 01/25/2025 9:18 AM EDT Symptoms: Abdominal Pain - Female - Not , Flank Pain Outcome: Schedule an urgent appointment (within 4 hours) or talk to a nurse or provider soon Reason: Getting worse The caller accepted this outcome. Contact pt at [phone] Need remote broadcast technician documented in this encounter Plan of Treatment Upcoming Encounters Date Type Department Care Team (Late st Contact Info) Description 02/13/2025 9:15 AM EDT Office [facility] MED & PEDS [address] [place] [address] Patricia Zheng MD [address] [place] [address] documented as of this encounter Visit Diagnoses Not on filedocumented in this encounter Additional Health Concerns Assessment Noted Time PHQ-9 Depression Total Score: 1 04/24/20 22 10:31 AM EST documented as of this encounter Care Teams Rn Lvn Relationship Specialty Start Date End Date Patricia Zheng MD [address] [place] [address] PCP - General Family Medicine 11/25/16 documented as of this encounter
--- OUTSIDE RECORDS SUMMARY | 2025-01-26 14:38 | XMS_ITS | Clinical Summary ---
Author Organization [facility] Address [address] [place] [address] Care Team Providers Care Rn Recruitment Name Role Phone Patricia Zheng Primary Care Provider [phone] Allergies Active Allergy Reactions Criticality Noted Date [...] Screening 05/10/2024 Depression Screening and Follow-Up 05/10/2024 [facility] Annual Screening 05/10/2024 COVID-19 Vaccine [...] patient's age to complete this topic Insurance [employer] HSNO/FREE CARE Care Teams Rn Recruitment Relationship Specialty Start Date End Date Patricia Zheng [address] [place] [address] PCP - General Internal Medicine 11/25/20
--- OUTSIDE RECORDS SUMMARY | 2025-01-26 14:38 | XMS_ITS | Clinical Summary ---
Author Organization [facility] Address [address] [place] [address] Care Team Providers Care Appliance Counselor Name Role Phone Lazara Foreman MD Primary [...] RESULTING AGENCY - 03/11/2018 12:50 PM EDT [id number] THINPREP PAP, IMAGED: NEGATIVE FOR SQUAMOUS INTRAEPITHELIAL LESION AND MALIGNANCY . RESULT OF APTIMA HIGH RISK HPV ASSAY: NEGATIVE (SEROTYPES 16,18,31,33,35,39,45,51,52,56,58,59,66,68) [place] ANTONIO(ASCP) (CASE ELECTRONICALLY SIGNED 03 11 2018) ADEQUACY: SATISFACTORY. ENDOCERVICAL/TRANSFORMATION ZONE COMPONENT PRESENT. SOURCE: THINPREP PAP HPV ANY DX: REFLEX 16 AND 18, CERVICAL, IMAGED: CLINICAL INFORMATION: HPV ANY DIAGNOSIS. , LMP 11/29/2017, PAP HX NEG [Z12.4] us Yumiko Rohan [facility] CYTOLOGY ORDERABLES Final Result HISTORICAL TESTING LAB RESULTING AGENCY from Last 3 Months or Most Recently Relevant to Health Maintenance Care Teams Appliance Counselor Relationship Specialty Start Date End Date Lazara Formean MD [address] [place] [address] PCP - General Internal Medicine 07/27/17
--- OUTSIDE RECORDS SUMMARY | 2025-01-26 14:38 | XMS_ITS | Encounter Summary ---
Author Organization [employer] Address [address] [facility] [address] [place] [address] Care Team Providers Care Saddle Maker Name Role Phone Patricia Zheng MD Primary Care Provider [phone] Encounter Details Date Type Department Care Team [...] Description 02/13/2025 9:15 AM EDT Office Visit [facility] MED & PEDS [address] [place] [address] Patricia Zheng MD [address] [place] [address] documented as of this encounter Visit Diagnoses Not on filedocumented in this encounter Additional Health Concerns Assessment Noted Time PHQ-9 Depression Total Score: 1 04/24/20 22 10:31 AM EST documented as of this encounter Care Teams Saddle Maker Relationship Specialty Start Date End Date Patricia Zheng MD [address] [place] [address] PCP - General Family Medicine 11/25/16 documented as of this encounter
[2025-01-26 17:53] LABS: MANUAL DIFF FLAG NO
[2025-01-26 18:10] LABS: Hemoglobin A1C 113.9611 umol/L; Total Hemoglobin (HGBA1C) 2718.8143 umol/L
[2025-01-26 18:30] LABS: Alanine Aminotransferase 16 U/L (0-31); Albumin Level 4.0 g/dL (3.5-5.0); Alkaline Phosphatase 101 U/L (39-117); Anion Gap 12 (12-20); Aspartate Amino Transferase 21 U/L (5-31); Blood Urea Nitrogen 11 mg/dL (9-16); Calcium 9.2 mg/dL (8.4-10.2); Carbon Dioxide 27 mmol/L (22-29); Chloride 104 mmol/L (96-108); Estimated Glomerular Filt Rate > 60; Lipase 13 U/L (8-78); Potassium 3.9 mmol/L (3.3-5.1); Sodium 139 mmol/L (135-145); Total Protein 7.8 g/dL (6.5-8.0)
[2025-01-26 18:32] LABS: Hematocrit 30.5 % (37.0-47.0); Hemoglobin 10.1 g/dl (12.0-16.0); Imm Gran Abs Auto 0.04 X10*3/uL (0.00-0.03); Imm Gran Pct Auto 0.4 % (0.0-0.4); Lymphocytes Absolute Auto 2.4 X10*3/uL (1.2-4.9); Mean Corpuscular HGB Conc 33.1 g/dl (31.0-35.0); Mean Corpuscular Hemoglobin 28.7 pg (27.0-33.0); Mean Corpuscular Volume 86.6 fL (80.0-98.0); NRBC Abs Auto 0.000 X10*3/uL (0.0-0.012); NRBC Pct Auto 0.0 /100WBC (0.0-0.2); Platelet Count 275 X10*3/uL (160-400); Red Blood Count 3.52 X10*6/uL (4.20-5.50); White Blood Count 9.1 X10*3/uL (4.8-10.8)
== END 2025-01-26 14:32 | disposition home or self-care (01) ==
LOC: HO.CHCLDS 14:31
PROVIDERS: Visit Provider Pediatrics
DX: R73.03 Prediabetes (principal); R10.9 Unspecified abdominal pain
CPT/HCPCS: 36415; 80048; 80076; 83036; 83690; 84443; 85025

== ENCOUNTER 2025-02-12 11:41 | Outpatient (REF) | payer MEDICAID, OTHER, SELFPAY ==
--- OUTSIDE RECORDS SUMMARY | 2025-02-12 14:15 | XMS_ITS | Encounter Summary ---
Author Organization [employer] Address [address] [facility] [address] [place] [address] Care Team Providers Care Ip Counsel Name Role Phone Patricia Zheng MD Primary Care Provider [phone] Encounter Details Date Type Department Care Team ([facility] Contact Info) Description 07/30/2022 Telephone [facility] MEDICINE [address] [place] [address] Patricia Zheng MD [address] [place] [address] Social History Tobacco Use Types Packs/Day Years [...] Upcoming Encounters Date Type Department Care Team ([facility] Contact Info) Description 02/13/2025 9:15 AM EDT Office Visit [facility] CHC MED & PEDS [address] [place] [address] Patricia Zheng MD [address] [place] [address] documented as of this encounter Visit Diagnoses Not on filedocumented in this encounter Additional Health Concerns Assessment Noted Time PHQ-9 Depression Total Score: 1 04/24/20 22 10:31 AM EST documented as of this encounter Care Teams Ip Counsel Relationship Specialty Start Date End Date Patricia Zheng MD [address] [place] [address] PCP - General Family Medicine 11/25/16 documented as of this encounter
--- OUTSIDE RECORDS SUMMARY | 2025-02-12 14:15 | XMS_ITS | Clinical Summary ---
Author Organization [employer] Address [address] [place] [address] 7t [place] [address] Care Team Providers Care Screen Roller Name Role Phone Patricia Zheng MD Primary Care Provider [phone] Allergies Active Allergy Reactions Criticality Noted Date [...] days. 10 capsule 5 01/31/20 25 Active Problems Problem Noted Date Diagnosed Date [...] Encounters Date Type Department Care Team Description 02/12/2025 Telephone [facility] MED & PEDS [address] [place] [address] Patricia Zheng MD Chart Prep 02/06/2025 Patient Outreach [facility] MEDICINE [address] [place] [address] Patricia Zheng MD Pre-visit Planning (Pre visit planning LVM ) 01/29/2025 Results Follow-Up [facility] MED & PEDS [address] [place] [address] Maddie De Leon RN POCT Urinalysis, Culture, Urine, Routine, CBC auto differential, Additional followed-up results: 5 01/29/2025 Orders Only [facility] MED & PEDS [address] [place] [address] Patricia Zheng MD Anemia, unspecified type (Primary Dx) 01/25/2025 4:00 PM EDT Office Visit [facility] MED & PEDS [address] [place] [address] Patricia Zheng MD Prediabetes (Primary Dx); Flank pain 01/25/2025 Travel 01/25/2025 Telephone [facility] MEDICINE [address] [place] [address] Patricia Zheng MD Nurse Triage 01/03/2025 11:00 AM EDT Office Visit [facility] OPTOMETRY [address] [place] [address] Migel, Ashlee, OD Meibomian gland disease of both eyes, unspecified eyelid (Primary Dx); Nevus of left eyelid; Pterygium of eye, left; Regular astigmatism of both eyes 01/03/2025 Travel 12/20/2024 5:00 PM EDT Office Visit [facility] WALK-IN CENTER [address] [place] [address] Catalina Zavala NP Dizziness (Primary Dx) 12/20/2024 [...] Upcoming Encounters Date Type Department Care Team ([facility] st Contact Info) Description 02/13/2025 9:15 AM EDT Office Visit [facility] MED & PEDS [address] [place] [address] Patricia Zheng MD [address] [place] [address] Health Maintenance Due Date Last Done Comments [...] 2025 , 03/12/2022, 03/23/2019, Additional history exists Cervical Cancer Screening 12/31/2025 HPV/Cotest 12/31/2025 12/31/2020 Pap Smear 12/31/2025 12/31/2020 Tobacco Screening 01/03/2026 01/03/2025 Diabetes: Hemoglobin A1C 01/26/2026 025, 02/01/2024, 07/16/2022, Additional history exists DTaP/Tdap/Td Vaccines (2 - Td or Tdap) [...] Procedure Name Priority Date/Time Associated Diagnosis Comments HEMOGLOBIN A1C Routine 01/26/2025 2:32 PM EDT Prediabetes LIPASE Routine 01/26/2025 2:32 PM EDT Flank pain TSH W/REFLEX TO FT4 Routine 01/26/2025 2 :32 PM EDT Flank pain HEPATIC FUNCTION PANEL Routine 2:32 PM EDT Flank pain BASIC METABOLIC PANEL Routine 01/26/2025 2:32 PM EDT Flank pain CBC WITH AUTO DIFFERENTIAL Routine 01/26/2025 2:32 PM EDT Flank pain POCT URINALYSIS DIPSTICK Routine 01/25/2025 4:35 PM EDT Flank pain CULTURE, URINE, ROUTINE Routine 01/25/2025 4:31 PM EDT Flank pain BI MAMMOGRAM DIAGNOSTIC TOMOSYNTHESIS BILATERAL Routine 05/07/2022 [...] Recently Relevant to Health Maintenance Results * TSH W/Reflex to FT4 (01/26/2025 2:32 PM EDT) TSH reflex Free T4 0.91 0.32 - 4.0 uIU/mL [facility] Blood Venous blood specimen / Unknown 01/26/2025 2:32 PM EDT 01/26/2025 5:54 PM EDT us Patricai Zheng MD LAB BLOOD ORDERABLES Final Re sult [facility] [address] [place] [phone] * (ABNORMAL) CBC auto differential (01/26/2025 2:32 PM EDT) White Blood Count 9.1 4.8 - 10.8 X10*3/uL [facility] Red Blood Count 3.52(L) 4.20 - 5.50 X10*6/uL [facility] Hemoglobin 10.1(L) 12.0 - 16.0 g/dl [facility] Hematocrit 30.5(L) 37.0 - 47.0 % [facility] Mean Corpuscular Volume 86.6 80.0 - 98.0 fL [facility] Mean Corpuscular Hemoglobin 28.7 27.0 - 33.0 pg [facility] Mean Corpuscular HGB Conc 33.1 31.0 - 35.0 g/dl [facility] Red Cell Distribution Width 14.5 11.0 - 16.0 % [facility] Platelet Count 275 160 - 400 X10*3/uL [facility] Mean Platelet Volume 12.0 9.4 - 12.3 fL [facility] Neutrophils Percent Auto 62.4 45 - 73 % [facility] Imm Gran Pct Auto 0.4 0.0 - 0.4 % [facility] Lymphocytes Percent Auto 26.0 20 - 40 % [facility] Monocytes Percent Auto 8.7 2 - 11 % [facility] Eosinophils Percent Auto 2.2 0 - 4 % [facility] Basophils Percent Auto 0.3 0 - 2 % [facility] NRBC Pct Auto 0.0 0.0 - 0.2 /100WBC [facility] Neutrophils Absolute Auto 5.6 2.0 - 8.3 x10*3/uL [facility] Imm Gran Abs Auto 0.04(H) 0.00 - 0.03 X10*3/uL [facility] Lymphocytes Absolute Auto 2.4 1.2 - 4.9 X10*3/uL [facility] Monocytes Absolute Auto 0.8 0.1 - 1.2 X10*3/uL [facility] Eosinophils Absolute Auto 0.2 0.0 - 0.4 X10*3/uL [facility] Basophils Absolute Auto 0.0 0.0 - 0.2 X10*3/uL [facility] NRBC Abs Auto 0.000 0.0 - 0.012 X10*3/uL [facility] Blood Venous blood specimen / Unknown 01/26/2025 2:32 PM EDT 01/26/2025 5:49 PM EDT us Patricia Zheng MD LAB BLOOD ORDERABLES Final Re sult [facility] [address] [place] [address] [phone] * Lipase (01/26/2025 2:32 PM EDT) Lipase 13 8 - 78 U/L [facility] Blood Venous blood specimen / Unknown 01/26/2025 2:32 PM EDT 01/26/2025 5:54 PM EDT Patricia Zheng MD LAB BLOOD ORDERABLES Final Re sult Performing Organization Address [facility]/ZIP Co de Phone Number [facility] [address] [place] [address] [phone] * Hemoglobin A1c (01/26/2025 2:32 PM EDT) Hemoglobin A1c 6.0 <6.0 % [facility] Comment:Hemoglobin A1C Refer ence Range Adults: 4.8 - 6.0 % Non diabetic: < 6.0 % Goal: < 7.0 %Additional Action Suggested: > 8.0 %Note: Hemoglobin A1c results are invalid for patients with abnormal amounts of HbF. Blood transfusions may impact the HbA1c concentration in the patient sample. Estimated Average Glucose 126 mg/dL [facility] Comment:eAG = Estimated ave rage glucose which is %A1C expressed asaverage glucose, using the formula of the Z6E-DlivxsrJejqimz Glucose study (ADAG), Diabetes Care, Vol.31,#8,Dec. 2007 Blood Venous blood specimen / Unknown 01/26/2025 2:32 PM EDT 01/26/2025 5:49 PM EDT Patricia Zheng MD LAB BLOOD ORDERABLES Final Re sult Performing Organization Address [facility]/ZIP Co de Phone Number [facility] [address] [place] [address] [phone] * Hepatic Function Panel (01/26/2025 2:32 PM EDT) Bilirubin, Total 0.2 0.0 - 1.0 mg/dL [facility] Bilirubin, Direct <0.2 0.0 - 0.5 mg/dL [facility] Aspartate Amino Transferase 21 5 - 31 U/L [facility] Alanine Aminotransferase 16 0 - 31 U/L [facility] Total Protein 7.8 6.5 - 8.0 g/dL [facility] Albumin Level 4.0 3.5 - 5.0 g/dL [facility] Alkaline Phosphatase 101 39 - 117 U/L [facility] Blood Venous blood specimen / Unknown 01/26/2025 2:32 PM EDT 01/26/2025 5:54 PM EDT us Patricia Zheng MD LAB BLOOD ORDERABLES Final Re sult Performing Organization Address City/[facility]/ZIP Co de Phone Number [facility] [address] [place] [address] [phone] * (ABNORMAL) Basic Metabolic Panel (01/26/2025 2:32 PM EDT) Sodium 139 135 - 145 mmol/L [facility] Potassium 3.9 3.3 - 5.1 mmol/L [facility] Chloride 104 96 - 108 mmol/L [facility] Carbon Dioxide 27 22 - 29 mmol/L [facility] Anion Gap 12 12 - 20 [facility] Urea Nitrogen (BUN) 11 9 - 16 mg/dL [facility] Creatinine, Serum 0.53 0.5 - 1.4 mg/dL [facility] Estimated Glomerular Filt Rate >60 [facility] Comment:Chronic Kidney Disea se: Estimated GFR < 60 mL/min/1.91j8Bzhtmp Kidney Disease: Estimated GFR < 15 mL/min/1.73m2 Glucose 119(H) 60 - 115 mg/dL [facility] Calcium 9.2 8.4 - 10.2 mg/dL [facility] Blood Venous blood specimen / Unknown 01/26/2025 2:32 PM EDT 01/26/2025 5:54 PM EDT us Patricia Zheng MD LAB BLOOD ORDERABLES Final Re sult [facility] [address] [place] [address] [phone] * (ABNORMAL) POCT Urinalysis (01/25/2025 4:35 PM [...] Media Lot # [id number] Lot# Expiration Date [id number] Urine 01/25/2025 4:35 PM EDT Patricia Zheng MD POINT OF CARE TEST ENTER/EDIT ORDERABLES Final Result * Culture, Urine, Routine (01/25/2025 4:31 PM EDT) Urine Urine specimen obtained by clean catch procedure / Unknown 01/25/2025 4:31 PM EDT 01/25/2025 5:35 PM EDT Comment:UACC Narrative [facility] - 01/27/2025 9:58 AM EDT Urine Culture Report Result Urine Culture 10,000 to 50,000 cfu/ml Urine Culture Mixed bacterial orion characteristic of Urine Culture urogenital contamination. Specimen Source: Urine clean catch Patricia Zheng MD LAB MICROBIOLOGY - GENERAL OR DERABLES Final Result [facility] [address] [place] [address] [phone] * BI Mammogram Diagnostic Tomosynthesis Left (05/07/2022 11:24 AM EST) Anatomical Region Laterality Modality Breast Bilateral Mammography 05/07/2022 11:2 4 AM EST Narrative 05/07/2022 1:38 PM EST [facility] [address] [place] [address] Mammography Report Signed Patient: Chaparrita Torres MR#: [id number] [birth year] : 1985 Acct:[id number] Age/Sex: 37 / F ADM Date: 05/07/22 Loc: HO.MAMMO Attending Dr: Patricia Zheng MD Ordering Physician: Patricia Zheng MD Results: 1Ne gative Date of Service: 05/07/22 Follow Up: 1 Year From Orig inal Mammogram Procedure(s): MM tomosynthesis diagnostic BI Accession Number(s): [id number] cc: Patricia Zheng MD EXAMINATION: MM DIAGNOSTIC [...] in OV> 05/07/22 1335 DD/ 1124 TD/TT: Power Station Operator: SK Procedure Note Donotuseinterpreter, Image - 05/07/2022 [place] [facility] [address] [place], [place] [address] Mammography Report Signed Patient: Marcelo Torres#: [id number] 95 : 1985Acct:[id number] Age/Sex: 37 / FADM Date: 05/07/22 Loc: HO.MAMMO Attending Dr: Patricia Zheng MD Ordering Physician: Patricia Zheng MDResults: 1Ne gative Date of Service: 05/07/22Follow Up: 1 Year From Orig inal Mammogram Procedure(s): MM tomosynthesis diagnostic BI Accession Number(s): [id number] cc: Patricia Zheng MD EXAMINATION: MM DIAGNOSTIC [...] in OV> 05/07/22 1335 DD/ 1124 TD/TT: Power Station Operator: JAIRO [facility] External Provider IMG BI PROCEDURES Edited Result - Final * HEPATITIS C AB W/REFL TO HCV RNA, QN, PCR (01/02/2021 3:35 PM EDT) HEPATITIS C ANTIBODY NON-REACT ALETHEA NON-REACT ALETHEA [facility] INDEX 0.01 <1.00 [facility] Comment: HCV antibody was non-reactive. There is no laboratory evidence of HCV infection. In most cases, no further action is required. However, if recent HCV exposure is suspected, a test for HCV RNA (test code 34015) is suggested. For additional information please refer to http://GetPrice.[employer]/faq/BKH07j8 (This link is being provided for informational/ educational purposes only.) 01/02/2021 3:35 PM EDT Peg Bowen [facility] HISTORICAL/NON ORDERABLE LABS Final Result [facility] [address] * HIV 1/2 ANTIGEN/ANTIBODY,FOURTH GENERATION W/RFL (01/02/2021 3:35 PM EDT) HIV-1/2 ANTIGEN AND ANTIBODIES, 4TH GENERATION W/ REFLEX NON-REACT ALETHEA NON-REACT ALETHEA [facility] Comment: HIV-1 antigen and HIV-1/HIV-2 [...] purpose. For additional information please refer to http://GetPrice.[employer]/faq/SRF067 (This link is being provided for informational/ educational purposes only.) The performance of this assay has not been clinically validated in patients less than 2 years old. 01/02/2021 3:35 PM EDT Peg Bowen [facility] LAB BLOOD ORDERABLES Jeanette l Result Performing Organization Address [facility] de Phone Number [facility] [address] * THINPREP PAP (12/31/2020 4:32 PM EDT) [...] along with historic and current clinical information. Contracts Specialist : SEE COMMENT [facility] Comment: DMM, CT(ASCP) CT screening location: [place] [address] Interpretation/R esult: Negative for intraepithelial lesion or malignancy. [facility] LMP: 12/27/20 [facility] Prev. BX: NONE GIVEN [facility] Prev. PAP: NONE GIVEN [facility] Review Contracts Specialist : SEE COMMENT [facility] Comment: KF, CT(ASCP) CT screening location: [place] [address] SOURCE: None given [facility] Statement Of Adequacy: SEE COMMENT [facility] Comment: Satisfactory for evaluation. Endocervical/transformation zone component present. 12/31/2020 4:32 PM EDT Peg Bowen [facility] LAB PATHOLOGY ORDERABLES Final Result Performing Organization Address [facility] Co de Phone Number [facility] [address] * HPV mRNA E6/E7 (12/31/2020 4:32 PM EDT) HPV nRNA E6/E7 Not Detected Not Detected [facility] Comment: Methodology: Fitter Machinist-Mediated Amplification This assay detects E6/E7 viral messenger RNA (mRNA) from 14 high-risk HPV types (16,18,31,33,35,39,45,51,52,56,58,59,66,68). The analytical performance characteristics of this assay have been determined by [employer]. The modifications have not been cleared or approved by the FDA. This assay has been validated pursuant to the CLIA regulations and is used for clinical purposes. For additional information, please refer to http://education.[employer]/faq/GKX474x7 (This link if provided for information/ educational purposes only.) 12/31/2020 4:32 PM EDT us Peg Bowen [facility] LAB BLOOD ORDERABLES Jeanette conway Result [facility] [address] from Last 3 Months or Most Recently Relevant to Health Maintenance Insurance [facility] Care Teams Screen Roller Relationship Specialty Start Date End Date Patricia Zheng MD [address] [place] [address] [place] [address] PCP - General Family Medicine 11/25/16
--- OUTSIDE RECORDS SUMMARY | 2025-02-12 14:15 | XMS_ITS | Encounter Summary ---
Author Organization [employer] Address [address] [facility] 7t [place] [address] Care Team Providers Care Activity Manager Name Role Phone Patricia Zheng MD Primary Care Provider [phone] Encounter Details Date Type Department Care Team ([facility] Contact Info) Description 01/29/2025 Results Follow-Up [facility]ED[facility] [address] [place], [place] [phone] Maddie De Leon RN POCT Urinalysis, Culture, Urine, Routine, CBC auto differential, Additional followed-up results: 5 Social History Tobacco Use Types Packs/Day Years [...] Description 02/13/2025 9:15 AM EDT Office Visit [facility] [address] [place] [address] Patricia Zheng MD [address] [place] [address] documented as of this encounter Visit Diagnoses Not on filedocumented in this encounter Additional Health Concerns Assessment Noted Time PHQ-9 Depression Total Score: 1 04/24/20 22 10:31 AM EST documented as of this encounter Care Teams Activity Manager Relationship Specialty Start Date End Date Patricia Zheng MD [address] [place] [address] PCP - General Family Medicine 11/25/16 documented as of this encounter
--- OUTSIDE RECORDS SUMMARY | 2025-02-12 14:15 | XMS_ITS | Clinical Summary ---
Author Organization [facility] Address [address] [place] [address] Care Team Providers Care Wastewater Process Engineer Name Role Phone Patricia Zheng Primary Care Provider [phone] Allergies Active Allergy Reactions Criticality Noted Date [...] Screening 05/10/2024 Depression Screening and Follow-Up 05/10/2024 [facility] Annual Screening 05/10/2024 COVID-19 Vaccine [...] patient's age to complete this topic Insurance [employer] HSNO/FREE CARE Care Teams Wastewater Process Engineer Relationship Specialty Start Date End Date Patricia Zheng [address] [place] [phone] PCP - General Internal Medicine 11/25/20
--- OUTSIDE RECORDS SUMMARY | 2025-02-12 14:15 | XMS_ITS | Clinical Summary ---
Author Organization [facility] Address [address] [place] [address] Care Team Providers Care Grants Specialist Name Role Phone Lazara Foreman MD Primary [...] of 3 - 19+ 3-dose series) 2003 HPV Vaccines (1 - 3-dose SCD M series) 2011 Cervical Cancer Screening: P ap Smear 03/07/2021 [...] RESULTING AGENCY - 03/11/2018 12:50 PM EDT [id number] THINPREP PAP, IMAGED: NEGATIVE FOR SQUAMOUS INTRAEPITHELIAL LESION AND MALIGNANCY . RESULT OF APTIMA HIGH RISK HPV ASSAY: NEGATIVE (SEROTYPES 16,18,31,33,35,39,45,51,52,56,58,59,66,68) [place] ANTONIO(ASCP) (CASE ELECTRONICALLY SIGNED 03 11 2018) ADEQUACY: SATISFACTORY. ENDOCERVICAL/TRANSFORMATION ZONE COMPONENT PRESENT. SOURCE: THINPREP PAP HPV ANY DX: REFLEX 16 AND 18, CERVICAL, IMAGED: CLINICAL INFORMATION: HPV ANY DIAGNOSIS. , LMP 11/29/2017, PAP HX NEG [Z12.4] us Yumiko Rohan [facility] CYTOLOGY ORDERABLES Final Result HISTORICAL TESTING LAB RESULTING AGENCY from Last 3 Months or Most Recently Relevant to Health Maintenance Care Teams Grants Specialist Relationship Specialty Start Date End Date Lazara Foreman MD [address] [place] [address] PCP - General Internal Medicine 07/27/17
--- OUTSIDE RECORDS SUMMARY | 2025-02-12 14:15 | XMS_ITS | Encounter Summary ---
Author Organization [employer] Address [address] [address] Care Team Providers Care Used Car Manager Name Role Phone Patricia Zheng MD Primary Care Provider [phone] Reason for Visit * Reason Onset Date Comments Chart Prep 02/12/2025 Encounter Details Date Type Department Care Team ([facility] Contact Info) Description 02/12/2025 Telephone [facility] MED & PEDS [address] [place], [place] [phone] Patricia Zheng MD [address] [place] [address] Chart Prep Social History Tobacco Use Types Packs/Day Years [...] encounter Miscellaneous Notes * Telephone Encounter - Aarti Donohue [place] - 02/12/2025 8:54 AM EDT Chart Prep Labs: not done, LVM for pt to come in today Images: not done Referrals: no show Vaccines due: Covid, Flu, Hep B, and HPV Screenings: mammogram Overdue care gaps: Glucose, SBIRT, SDOH, PHQ-9, Oral health screening, Disability screen, and Tobacco documented in this encounter Plan of Treatment Upcoming Encounters Date Type Department Care Team ([facility] st Contact Info) Description 02/13/2025 9:15 AM EDT Office Visit [facility] MED & PEDS [address] [place] [address] Patricia Zheng MD [address] [place] [address] documented as of this encounter Visit Diagnoses Not on filedocumented in this encounter Additional Health Concerns Assessment Noted Time PHQ-9 Depression Total Score: 1 04/24/20 22 10:31 AM EST documented as of this encounter Care Teams Used Car Manager Relationship Specialty Start Date End Date Patricia Zheng MD [address] [place] [address] PCP - General Family Medicine 11/25/16 documented as of this encounter
[2025-02-12 15:22] LABS: Iron 137 mcg/dL (30-160); Percent Iron Saturation 34 % (15-50); Total Iron Binding Capacity 401 mcg/dL (228-428); Unsaturated Iron Binding 264 ug/dL
[2025-02-12 15:26] LABS: Ferritin 17 ng/mL (10-250)
[2025-02-12 15:36] LABS: Folate 12.7 ng/mL (> or = 4.0); Vitamin B12 676 pg/mL (200-900)
[2025-02-14 11:27] LABS: Anti Nuclear Antibody Screen NEGATIVE (NEGATIVE)
== END 2025-02-12 11:42 | disposition home or self-care (01) ==
LOC: HO.CHCLDS 11:41
PROVIDERS: Visit Provider Pediatrics
DX: Z01.84 Encounter for antibody response examination (principal); D64.9 Anemia, unspecified
CPT/HCPCS: 36415; 82306; 82607; 82728; 82746; 83540; 85652; 86038

== ENCOUNTER → 2025-03-30 15:15 | Outpatient (BNV) | payer MEDICAID, SELFPAY | PROVIDERS: Visit Provider Radiology Body Imaging | DX: Z12.31 Encounter for screening mammogram for malignant neoplasm of breast (principal) | CPT/HCPCS: 77063; 77067 ==

== ENCOUNTER 2025-03-30 15:32 | Outpatient (REF) | payer MEDICAID, OTHER, SELFPAY ==
--- NOTE | ~2025-03-30 | MM_ITS ---
EXAMINATION: MM SCREENING DIGITAL BREAST TOMOSYNTHESIS, BILATERAL CLINICAL INFORMATION: Screening. Asymptomatic. COMPARISON: May 07, 2022 TECHNIQUE: Digital breast tomosynthesis is performed in mediolateral oblique and craniocaudal views along with computer-aided detection (CAD). Synthesized 2D images are generated from the tomosynthesis. FINDINGS: BREAST COMPOSITION: The breasts are heterogeneously dense, which may obscure small masses. RIGHT BREAST: No significant masses, suspicious calcifications or other abnormalities are seen. LEFT BREAST: Focal asymmetry in the upper outer quadrant at approximately 5 cm from the nipple. No suspicious calcifications or other abnormalities are seen. MM/MM tomosynthesis screening BI IMPRESSION: RIGHT BREAST: Negative, no mammographic evidence of malignancy. Normal interval follow-up is recommended in 12 months. LEFT BREAST: Focal asymmetry in the upper outer quadrant posterior depth. ASSESSMENT: BI-RADS: Category 0: Incomplete - Need additional Imaging Evaluation RECOMMENDATION: 1. Additional views of the left breast 2. Targeted ultrasound if warranted after review of the additional views. 3. Radiology department staff will contact the patient for additional imaging. FOLLOW-UP: Additional Imaging required This examination should not preclude the clinical evaluation of a suspicious palpable abnormality. This patient's information was entered into a reminder system with a target due date for their next mammogram. Electronically signed by: Fabio Aguilar MD 04/02/2025 06:37 PM [email or web address]
--- OUTSIDE RECORDS SUMMARY | 2025-03-30 15:35 | XMS_ITS | Encounter Summary ---
Author Organization [employer] Address [address] [facility] 7t [place] [address] Care Team Providers Care Cost Specialist Name Role Phone Patricia Zheng MD Primary Care Provider Encounter Details Date Type Department Care Team ([facility] Contact Info) Description 01/29/2025 Results Follow-Up [facility] MED & PEDS [address] [place], [place] [phone] Maddie De Leon RN POCT Urinalysis, Culture, [...] documented as of this encounter Care Teams Cost Specialist Relationship Specialty Start Date End Date Patricia Zheng MD [address] [place] [address] PCP - General Family Medicine 11/25/16 documented as of this encounter
--- OUTSIDE RECORDS SUMMARY | 2025-03-30 15:35 | XMS_ITS | Encounter Summary ---
Author Organization [employer] Address [address] [facility] [address] [place] [address] Care Team Providers Care Plaque Maker Name Role Phone Patricia Zheng MD Primary Care Provider [phone] Encounter Details Date Type Department Care Team ([facility] st Contact Info) Description 07/30/2022 Telephone [facility] MEDICINE [address] [place] [address] Patricia Zheng MD [address] [place] [address] Social History Tobacco Use Types Packs/Day Years [...] documented as of this encounter Care Teams Plaque Maker Relationship Specialty Start Date End Date Patricia Zheng MD [address] [place] [address] PCP - General Family Medicine 11/25/16 documented as of this encounter
--- OUTSIDE RECORDS SUMMARY | 2025-03-30 15:35 | XMS_ITS | Clinical Summary ---
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 RESULT OF APTIMA HIGH RISK HPV ASSAY: NEGATIVE (SEROTYPES 16,18,31,33,35,39,45,51,52,56,58,59,66,68) [place] ANTON[place](ASCP) (CASE ELECTRONICALLY SIGNED 03 11 2018) ADEQUACY: SATISFACTORY. ENDOCERVICAL/TRANSFORMATION ZONE COMPONENT PRESENT. SOURCE: THINPREP PAP HPV ANY DX: REFLEX 16 AND 18, CERVICAL, IMAGED: CLINICAL INFORMATION: HPV ANY DIAGNOSIS. , LMP 11/29/2017, PAP HX NEG [Z12.4] us Yumiko Rohan [facility] LAB CYTOLOGY ORDERABLES Final Result HISTORICAL TESTING LAB RESULTING AGENCY from Last 3 Months or Most Recently Relevant to Health Maintenance Care Teams Glass Laminating Operator Relationship Specialty Start Date End Date Lazara Foreman MD [address] [place] [address] PCP - General Internal Medicine 07/27/17
--- OUTSIDE RECORDS SUMMARY | 2025-03-30 15:35 | XMS_ITS | Encounter Summary ---
Author Organization [employer] Address [address] [facility] 7 [place] [address] Care Team Providers Care Hospital Unit Coordinator Name Role Phone Patricia Zheng MD Primary Care Provider [phone] Encounter Details Date Type Department Care Team ([facility] Contact Info) Description 02/16/2025 Results Follow-Up [facility] [address] [place] [address] Patricia Zheng MD [address] [place] [address] Vitamin B12/Folate, Serum Panel, Vitamin D, 25-Hydroxy, Total, Immunoassay, Iron And Total Iron Binding Capacity, Additional followed-up results: 3 Social History Tobacco Use Types Packs/Day Years Used Date Smoking Tobacco: Never Passive Smoke Exposure: Never Smokeless Tobacco: Never Alcohol Use Standard Drinks/Week Comments Never 0 (1 standard drink = 0.6 oz pur e alcohol) Depression Answer Date Recorded Patient Health Questionnaire-9 Score 0 02/13/2025 Patient Health Questionnaire-9 Score 0 02/13/2025 Last PHQ-9: Questionnaire Data Not on file 1 Housing Stability Answer Date Recorded What is your housing situation today? I have jatin marcus 02/13/[address] you li ve. Do you have problems with any of the following? None of the above 02/13/2025 Food Insecurity Answer Date Recorded Within the past 12 months, y ou worried that your food would run out before you got money to buy more: Sometimes True 2024 Within the past 12 months,th e food you bought just didn't last and you didn't have enough money to get more: Never True 02/13/2025 Transportation Answer Date Recorded In the past 12 months, has l ack of transportation kept you from medical appts, meetings, work or from getting things needed for daily living? No 02/13/2025 Utilities Answer Date Recorded In the past 12 months, has t he electric, gas, oil or water company threatened to shut off services in your home? No 02/13/2025 Depression Answer Date Recorded Patient Health Questionnaire-2 Score 0 02/13/2025 Internet Access Answer Date Recorded Internet Access Q1 Yes 02/13/2025 Internet Access Q2 Not on file 02/13/2025 Comments No Sex and Gender Information Value [...] Assessment Noted Time PHQ-9 Depression Total Score: 0 02/14/20 25 9:40 AM EDT documented as of this encounter Care Teams Hospital Unit Coordinator Relationship Specialty Start Date End Date Patricia Zheng MD [address] [place] [phone] PCP - General Family Medicine 11/25/16 documented as of this encounter
--- OUTSIDE RECORDS SUMMARY | 2025-03-30 15:35 | XMS_ITS | Clinical Summary ---
Author Organization [facility] Address [address] [place] [address] Care Team Providers Care Portfolio Director Name Role Phone Patricia Zheng Primary Care Provider [phone] Allergies Active Allergy Reactions Criticality Noted Date [...] Screening 05/10/2024 Depression Screening and Follow-Up 05/10/2024 [employer] Annual Screening 05/10/2024 Influenza Vaccine (#1) 2024 , 03/23/2019, 05/16/2018, Additional history exists COVID-19 Vaccine ( season) 2025 07/03/2021, 10/18/2020, 09/20/2020 DTaP,Tdap,and Td Vaccines (2 - Td or Tdap) 05/16/2028 05/16/2018 HIV Screening Completed 01/02/2021 Pneumococcal Vaccine: Pediatric (0-5 Years) and At-Risk Patients (6-50 Years) Aged Out No longer eligible based on patient's age to complete this topic Insurance [facility] HS/FREE CARE Care Teams Portfolio Director Relationship Specialty Start Date End Date Patricia Zheng [address] [place] [phone] PCP - General Internal Medicine 11/25/20
--- OUTSIDE RECORDS SUMMARY | 2025-03-30 15:35 | XMS_ITS | Clinical Summary ---
Author Organization [employer] Address [address] [place] [address] [address] [place] [address] Care Team Providers Care Busgirl Name Role Phone Patricia Zheng MD Primary Care Provider [phone] Allergies Active Allergy Reactions Criticality Noted Date Comments Amoxicillin Hives Low 10/08/2016 Kiwi Extract 05/20/2022 Tetracycline Itching Low 11/25/2016 Other reaction(s): HIVES,ITCHY Medications norelgestromin-et hinyl estradiol (Xulane) 150-35 MCG/24HR Place 1 patch on the skin once a week. 2 Active multivitamin (Theragran) tablet Take 1 tablet by mouth. 9 Active ferrous sulfate 325 (65 Fe) MG tablet 1 tablet at bed time. 2 Active glucose blood (FREESTYLE LITE) test strip every 12 (twelve) hours. 1 Active Glycerin-Hypromel lose-PEG 400 0.2-0.2-1 % solutionIndicatio ns:Pterygium of eye, left Administer 1 drop into [...] 360 doses. 90 tablet 3 4 Active cholecalciferol (Vitamin D-3) 50 MCG (2000 UT) capsuleIndication s:Vitamin D insufficiency Take 1 capsule (50 mcg) by mouth Once per day. 90 capsule 3 5 Active Active Problems Problem Noted Date Diagnosed [...] Encounters Date Type Department Care Team Description 02/16/2025 Results Follow-Up [facility] [address] [place] [address] Patricia Zheng MD Vitamin B12/Folate, Serum Panel, Vitamin D, 25-Hydroxy, Total, Immunoassay, Iron And Total Iron Binding Capacity, Additional followed-up results: 3 02/13/2025 9:15 AM EDT Office Visit [facility] [address] [place] [address] Patricia Zheng MD Encounter for immunization (Primary Dx); Prediabetes; Breast cancer screening by mammogram; Vitamin D insufficiency; Normocytic anemia; Menorrhagia with regular cycle; Pterygium of eye, left 02/13/2025 Travel 02/12/2025 Telephone [facility] [address] [place] [address] Patricia Zheng MD Chart Prep 02/06/2025 Patient Outreach [facility] MEDICINE [address] [place] [phone] Patricia Zheng MD Pre-visit Planning (Pre visit planning LVM ) 01/29/2025 Results Follow-Up [facility] [address] [place] [address] Maddie De Leon RN POCT Urinalysis, Culture, Urine, Routine, CBC auto differential, Additional followed-up results: 5 01/29/2025 Orders Only [facility] [address] [place] [address] Patricia Zheng MD Anemia, unspecified type (Primary Dx) 01/25/2025 4:00 PM EDT Office Visit [facility] [address] [place] [address] Patricia Zheng MD Prediabetes (Primary Dx); Flank pain 01/25/2025 Travel 01/25/2025 Telephone [facility] MEDICINE [address] [place] [phone] Patricia Zheng MD Nurse Triage 01/03/2025 11:00 AM EDT Office Visit [facility] OPTOMETRY [address] [place] [address] Migel, Ashlee, OD Meibomian gland disease of both eyes, unspecified eyelid (Primary Dx); Nevus of left eyelid; Pterygium of eye, left; Regular astigmatism of both eyes 01/03/2025 Travel from Last 3 Months Immunizations Immunization Administration Dates Next Due Influenza Injectable Quadriv alant Preservative Free IIV4 MDCK 05/16/2018 Influenza injectable quadriv alent IIV4 with preservative 03/23/2019,03/24/2017 Influenza injectable quadriv alent preservative free 03/12/2022,03/16/2018 Influenza, seasonal, injecta ble, preservative free 02/13/2025,02/01/2024,04/05/2016 Moderna Covid-19 Vaccine 12+ 10/18/2020, 10/18/2020,09/20/2020,2020 Tdap [...] is your housing situation today? I have jatinjos marcus 02/13/[address] you [...] Sign Reading Time Taken Comments Blood Pressure 90/54 02/13/2025 9:22 AM EDT Pulse 76 02/13/2025 9:22 AM EDT Temperature 36.9 C (98.5 F) 02/13/2025 9:22 AM EDT Respiratory Rate 16 02/13/2025 9:22 AM EDT Oxygen Saturation 99% 12/20/2024 5:03 PM EDT Inhaled Oxygen Concentration - - Weight 55.8 kg (123 lb) 02/13/2025 9:22 AM EDT Height 150.5 cm (4' 11.25 ) 02/13/2025 9:22 AM E DT Body Mass Index 24.63 02/13/2025 9:22 AM EDT Plan of Treatment Health Maintenance Due Date Last Done Comments Family Planning (PISQ) 1999 HPV Vaccines (1 - 3-dose series) 1999 Hepatitis B Vaccines (1 of 3 - 19+ 3-dose series) 2003 Mammogram 05/07/2024 05/07/2022, 05/07/2022 COVID-19 Vaccine ( season) 2025 07/03/2021, 10/18/2020, 10/18/2020, Additional history exists Cervical Cancer Screening 12/31/2025 HPV/Cotest 12/31/2025 12/31/2020 Pap Smear 12/31/2025 12/31/2020 Diabetes: Hemoglobin A1C 01/26/2026 025, 02/01/2024, 07/16/2022, Additional history exists Alcohol/Substance Use Screening 02/13/2026 02/13/2025 Depression Screening 02/13/2026 02/13/2025, 02/14/20 25 Disability Screening 02/13/2026 02/13/2025 SDOH Screening 02/13/2026 02/13/2025 Tobacco Screening 02/13/2026 02/13/2025 DTaP/Tdap/Td Vaccines (2 - Td or Tdap) 05/16/2028 05/16/2018 Zoster Vaccines (1 of 2) 2034 RSV Patients and Patients Aged 60 years or older (1 - 1-dose 75+ series) 2059 HIV Screening Completed 01/02/2021 Hepatitis C Screening Completed 01/02/2021 Influenza Vaccine Completed 02/13/2025, , 03/12/2022, Additional history exists HIB Vaccines Aged Out No longer eligi [...] Name Priority Date/Time Associated Diagnosis Comments POCT GLUCOSE Routine 02/13/2025 9:39 AM EDT Prediabetes SED RATE BY MODIFIED WESTERGREN Routine 02/12/2025 11:42 AM EDT Anemia, unspecified type BOOGIE SCREEN, IFA, W/REFL TITER AND PATTERN Routine 02/12/2025 11:42 AM EDT Anemia, unspecified type FERRITIN Routine 02/12/2025 11:42 AM EDT Anemia, unspecified type IRON AND TOTAL IRON BINDING CAPACITY Routine 02/12/2025 11:42 AM EDT Anemia, unspecified type VITAMIN D,25-OH,TOTAL,IA Routine 02/12/2025 11:42 AM EDT Anemia, unspecified type VITAMIN B12/FOLATE, SERUM PANEL Routine 02/12/2025 11:42 AM EDT Anemia, unspecified type HEMOGLOBIN A1C Routine 01/26/2025 2:32 PM EDT [...] Recently Relevant to Health Maintenance Results * POCT Glucose (02/13/2025 9:39 AM EDT) Glucose Blood, POC 129 60 - 200 mg/dL Blood Capillary blood specimen / Unknown 02/13/2025 9:39 AM EDT Patricia Zheng MD POINT OF CARE TEST ENTER/EDIT ORDERABLES Final Result * Vitamin D, 25-Hydroxy, Total, Immunoassay (02/12/2025 11:42 AM EDT) Pathologist [facility] Vitamin D 25-OH Total 31.9 >30 ng/mL [facility] Comment: Health Based Reference Values*< 20 ng/mL Tsnyljajk30-11 ng/mL Insufficient> 30 ng/mL Sufficient*Casey LARRY. N Engl J Med. 2007;357:266-280There is no well-established upper level of normal vitamin Dlevels. Some laboratories use 50 ng/mL as an upper limit ofnormal. However, toxicity is patient-dependent and may occurat any level. Careful correlation with the patient'spresentation is necessary and, if there is concern forvitamin D toxicity, treatment should be consideredirrespective of the serum level.Care must be taken in interpreting Vitamin D results fromdifferent laboratories and methodologies. Published datademonstrated that results from patients undergoinghemodialysis may show a negative bias when tested withvarious automated 25-OH vitamin D assays when compared toLC-MS/MS.When testing samples from patients whose predominant form ofVitamin D is Vitamin D2, such as patients receiving VitaminD2 supplementation, results that are subtherapeutic shouldbe confirmed with another method such as LC-MS/MS. Blood Venous blood specimen / Unknown 02/12/2025 11:42 AM EDT 02/12/2025 2:37 PM EDT Patricia Zheng MD LAB BLOOD ORDERABLES Final Re sult [facility] [address] [place] [phone] * Vitamin B12/Folate, Serum Panel (02/12/2025 11:42 AM EDT) Vitamin B12 676 200 - 900 pg/mL [facility] Comment:NORMAL 200-900 PG/ML INDETERMINATE 160-199 PG/ML DEFICIENT < 160 PG/ML Folate 12.7 > or = 4.0 ng/mL [facility] Comment:Reference Values:> o r = 4.0 ng/mL< 4.0 ng/mL suggests folate deficiency Methotrexate, aminopterin and folinic acid(leucovorin) are chemotherapeutic agents whose molecularstructures are similar to folate; therefore, the Architectfolate assay cannot be used for patients using these drugs. Blood Venous blood specimen / Unknown 02/12/2025 11:42 AM EDT 02/12/2025 2:37 PM EDT Patricia Zheng MD LAB BLOOD ORDERABLES Final Re sult Performing Organization Address [facility] Co de Phone Number [facility] [address] [place] [phone] * Iron And Total Iron Binding Capacity (02/12/2025 11:42 AM EDT) Pathologist [facility] Iron 137 30 - 160 mcg/dL [facility] Total Iron Binding Capacity 401 228 - 428 mcg/dL [facility] Percent Iron Saturation 34 15 - 50 % [facility] Unsaturated Iron Binding 264 ug/dL [facility] Blood Venous blood specimen / Unknown 02/12/2025 11:42 AM EDT 02/12/2025 2:37 PM EDT Patricia Zheng MD LAB BLOOD ORDERABLES Final Re sult Performing Organization Address [facility] Co de Phone Number [facility] [address] [place] [phone] * (ABNORMAL) Sed Rate by Naheed Wise (02/12/2025 11:42 AM EDT) Erythrocyte Sedimentation Rate 32(H) 0 - 20 MM/HR [facility] Comment:Patients with polycy themia and many hemoglobin abnormalitiesmay have depressed sed rates whereas patients with anemiamay have elevated sed rates. Blood Venous blood specimen / Unknown 02/12/2025 11:42 AM EDT 02/12/2025 2:37 PM EDT us Patricia Zheng MD LAB BLOOD ORDERABLES Final Re sult [facility] [address] [place] [address] [phone] * BOOGIE Screen,IFA, with Reflex to Titer and Pattern (02/12/2025 11:42 AM EDT) Anti Nuclear Antibody Screen NEGATIVE NEGATIVE [facility] Comment:BOOGIE IFA is a first l ine screen for detecting thepresence of up to approximately 150 autoantibodies invarious autoimmune diseases. A negative BOOGIE IFA resultsuggests an BOOGIE-associated autoimmune disease is notpresent at this time, but is not definitive. If thereis high clinical suspicion for Sjogren's syndrome,testing for anti-SS-A/Ro antibody should be considered.Anti-Marcy-1 antibody should be considered for clinicallysuspected inflammatory myopathies.AC-0: NegativeInternational Consensus on BOOGIE Patterns(https://doi.org/10.1515/zrtj-6880-9156)For additional information, please refer tohttp://education.[employer]/faq/HWV244(This link is being provided for informational/educational purposes only.)THIS TEST WAS PERFORMED AT:[facility] [place] [phone] MARRERO MD BOOGIE Titer TNP [facility] BOOGIE Pattern TNP [facility] BOOGIE Titer 2 TNP [facility] BOOGIE Pattern 2 [facility]OO[facility] TITER 3 [facility] BOO[facility] PATTERN 3 [facility] Blood Venous blood specimen / Unknown 02/12/2025 11:42 AM EDT 02/12/2025 2:37 PM EDT Patricia Zheng MD LAB BLOOD ORDERABLES Final Re sult Performing Organization Address [facility]/ZIP Co de Phone Number [facility] [address] [place] [phone] * Ferritin (02/12/2025 11:42 AM EDT) Ferritin 17 10 - 250 ng/mL [facility] Blood Venous blood specimen / Unknown 02/12/2025 11:42 AM EDT 02/12/2025 2:37 PM EDT Patricia Zheng MD LAB BLOOD ORDERABLES Final Re sult Performing Organization Address [facility] de Phone Number [facility] [address] [place] [phone] * TSH W/Reflex to FT4 (01/26/2025 2:32 PM EDT) Pathologist [facility] TSH reflex Free T4 0.91 0.32 - 4.0 uIU/mL [facility] Blood Venous blood specimen / Unknown 01/26/2025 2:32 PM EDT 01/26/2025 5:54 PM EDT Patricia Zheng MD LAB BLOOD ORDERABLES Final Re sult Performing Organization Address [facility] Co de Phone Number [facility] [address] [place] [phone] * (ABNORMAL) CBC auto differential (01/26/2025 2:32 PM EDT) White Blood Count 9.1 4.8 - 10.8 X10*3/uL [facility] Red Blood Count 3.52(L) 4.20 - 5.50 X10*6/uL [facility] Hemoglobin 10.1(L) 12.0 - 16.0 g/dl [facility] Hematocrit 30.5(L) 37.0 - 47.0 % [facility] Mean Corpuscular Volume 86.6 80.0 - 98.0 fL [facility] Mean Corpuscular Hemoglobin 28.7 27.0 - 33.0 pg [facility] Mean Corpuscular HGB Conc 33.1 31.0 - 35.0 g/dl [facility] Red Cell Distribution Width 14.5 11.0 - 16.0 % [facility] Platelet Count 275 160 - 400 X10*3/uL [facility] Mean Platelet Volume 12.0 9.4 - 12.3 fL [facility] Neutrophils Percent Auto 62.4 45 - 73 % [facility] Imm Gran Pct Auto 0.4 0.0 - 0.4 % [facility] Lymphocytes Percent Auto 26.0 20 - 40 % [facility] Monocytes Percent Auto 8.7 2 - 11 % [facility] Eosinophils Percent Auto 2.2 0 - 4 % [facility] Basophils Percent Auto 0.3 0 - 2 % [facility] NRBC Pct Auto 0.0 0.0 - 0.2 /100WBC [facility] Neutrophils Absolute Auto 5.6 2.0 - 8.3 x10*3/uL [facility] Imm Gran Abs Auto 0.04(H) 0.00 - 0.03 X10*3/uL [facility] Lymphocytes Absolute Auto 2.4 1.2 - 4.9 X10*3/uL [facility] Monocytes Absolute Auto 0.8 0.1 - 1.2 X10*3/uL [facility] Eosinophils Absolute Auto 0.2 0.0 - 0.4 X10*3/uL [facility] Basophils Absolute Auto 0.0 0.0 - 0.2 X10*3/uL [facility] NRBC Abs Auto 0.000 0.0 - 0.012 X10*3/uL [facility] Blood Venous blood specimen / Unknown 01/26/2025 2:32 PM EDT 01/26/2025 5:49 PM EDT us Patricia Begolli MD LAB BLOOD ORDERABLES Final Re sult Performing Organization Address [facility]/ZIP Co de Phone Number [facility] [address] [place] [phone] * Lipase (01/26/2025 2:32 PM EDT) Lipase 13 8 - 78 U/L [facility] Blood Venous blood specimen / Unknown 01/26/2025 2:32 PM EDT 01/26/2025 5:54 PM EDT Patricia Zheng MD LAB BLOOD ORDERABLES Final Re sult Performing Organization Address [facility] de Phone Number [facility] [address] [place] [phone] * Hemoglobin A1c (01/26/2025 2:32 PM EDT) Hemoglobin A1c 6.0 <6.0 % [facility] Comment:Hemoglobin A1C Refer ence Range Adults: 4.8 - 6.0 % Non diabetic: < 6.0 % Goal: < 7.0 %Additional Action Suggested: > 8.0 %Note: Hemoglobin A1c results are invalid for patients with abnormal amounts of HbF. Blood transfusions may impact the HbA1c concentration in the patient sample. Estimated Average Glucose 126 mg/dL [facility] Comment:eAG = Estimated ave rage glucose which is %A1C expressed asaverage glucose, using the formula of the S0H-JzfdvsuLwxfbos Glucose study (ADAG), Diabetes Care, Vol.31,#8,2007 Blood Venous blood specimen / Unknown 01/26/2025 2:32 PM EDT 01/26/2025 5:49 PM EDT Patricia Zheng MD LAB BLOOD ORDERABLES Final Re sult Performing Organization Address [facility] Co de Phone Number [facility] [address] [place] [phone] * Hepatic Function Panel (01/26/2025 2:32 PM EDT) Pathologist [facility] Bilirubin, Total 0.2 0.0 - 1.0 mg/dL [facility] Bilirubin, Direct <0.2 0.0 - 0.5 mg/dL [facility] Aspartate Amino Transferase 21 5 - 31 U/L [facility] Alanine Aminotransferase 16 0 - 31 U/L [facility] Total Protein 7.8 6.5 - 8.0 g/dL [facility] Albumin Level 4.0 3.5 - 5.0 g/dL [facility] Alkaline Phosphatase 101 39 - 117 U/L [facility] Blood Venous blood specimen / Unknown 01/26/2025 2:32 PM EDT 01/26/2025 5:54 PM EDT us Patricia Zheng MD LAB BLOOD ORDERABLES Final Re sult [facility] [address] [place] [phone] * (ABNORMAL) Basic Metabolic Panel (01/26/2025 2:32 PM EDT) [facility] Sodium 139 135 - 145 mmol/L [facility] Potassium 3.9 3.3 - 5.1 mmol/L [facility] Chloride 104 96 - 108 mmol/L [facility] Carbon Dioxide 27 22 - 29 mmol/L [facility] Anion Gap 12 12 - 20 [facility] Urea Nitrogen (BUN) 11 9 - 16 mg/dL [facility] Creatinine, Serum 0.53 0.5 - 1.4 mg/dL [facility] Estimated Glomerular Filt Rate >60 [facility] Comment:Chronic Kidney Disea se: Estimated GFR < 60 mL/min/1.34i6Kbjafb Kidney Disease: Estimated GFR < 15 mL/min/1.73m2 Glucose 119(H) 60 - 115 mg/dL [facility] Calcium 9.2 8.4 - 10.2 mg/dL [facility] Blood Venous blood specimen / Unknown 01/26/2025 2:32 PM EDT 01/26/2025 5:54 PM EDT Result [facility] Patricia Zheng MD LAB BLOOD ORDERABLES Final Re sult Performing Organization Address [facility]/ZIP Co de Phone Number [facility] [address] [place] [address] [phone] * (ABNORMAL) POCT Urinalysis (01/25/2025 4:35 [...] Media Lot # [id number] Lot# Expiration Date [id number] Urine 01/25/2025 4:35 PM EDT Result [facility] Patricia Zheng MD POINT OF CARE TEST ENTER/EDIT ORDERABLES Final Result * Culture, Urine, Routine (01/25/2025 4:31 PM EDT) Urine Urine specimen obtained by clean catch procedure / Unknown 01/25/2025 4:31 PM EDT 01/25/2025 5:35 PM EDT Comment:UACC Narrative [facility] - 01/27/2025 9:58 AM EDT Urine Culture Report Result Urine Culture 10,000 to 50,000 cfu/ml Urine Culture Mixed bacterial orion characteristic of Urine Culture urogenital contamination. Specimen Source: Urine clean catch Result [facility] Patricia Zheng MD LAB MICROBIOLOGY - GENERAL OR DERABLES Final Result Performing Organization Address [facility]/ZIP Co de Phone Number [facility] [address] [place] [phone] [phone] * BI Mammogram Diagnostic Tomosynthesis Left (05/07/2022 11:24 AM EST) Anatomical Region Laterality Modality Breast Bilateral Mammography 05/07/2022 11:2 4 AM EST Narrative 05/07/2022 1:38 PM EST [facility] [address] [place], [place] [address] Mammography Report Signed Patient: Chaparrita Torres MR#: [id number] : 1985 Acct:[id number] Age/Sex: 37 / F ADM Date: 05/07/22 Loc: HO.MAMMO Attending Dr: Patricia Zheng MD Ordering Physician: Patricia Zheng MD Results: 1Ne gative Date of Service: 05/07/22 Follow Up: 1 Year From [facility] ina Mammogram Procedure(s): MM tomosynthesis diagnostic BI Accession Number(s): [id number] cc: Patricia Zheng MD EXAMINATION: MM DIAGNOSTIC [...] in OV> 05/07/22 1335 DD/ 1124 TD/TT: Technical Service Engineer: JAIRO Procedure Note Donotuseinterpreter, Image - 05/07/2022 [facility] [address] [place] [address] Mammography Report Signed Patient: Marcelo Torres#: [id number] 95 : 1985Acct:[id number] Age/Sex: 37 / FADM Date: 05/07/22 Loc: HO.MAMMO Attending Dr: Patricia Zheng MD Ordering Physician: Patricia Zheng MDResults: 1Ne gative Date of Service: 05/07/22Follow Up: 1 Year From Orig ina Mammogram Procedure(s): MM tomosynthesis diagnostic BI Accession Number(s): [id number] cc: Patricia Zheng MD EXAMINATION: MM DIAGNOSTIC [...] in OV> 05/07/22 1335 DD/ 1124 TD/TT: Technical Service Engineer: SK [facility] External Provider IMG BI PROCEDURES Edited [...] a test for HCV RNA (test code 30335) is suggested. For additional information please refer to http://education.[employer]/faq/MNJ84a6 (This link is being provided for informational/ educational purposes only.) 01/02/2021 3:35 PM EDT Peg Bowen CNM HISTORICAL/NON ORDERABLE LABS Final Result [facility] [address] * HIV 1/2 ANTIGEN/ANTIBODY,FOURTH GENERATION W/RFL [...] purpose. For additional information please refer to http://education.[employer]/faq/MAD564 (This link is being provided for informational/ educational purposes only.) The performance of this assay has not been clinically validated in patients less than 2 years old. 01/02/2021 3:35 PM EDT Peg RIOS LAB BLOOD ORDERABLES Jeanette l Result [facility] [address] [place] [address], * THINPREP PAP (12/31/2020 4:32 PM EDT) [...] along with historic and current clinical information. Ict Developer : SEE COMMENT [facility] Comment: DMM, CT(ASCP) CT screening location: [place] [address] Interpretation/R esult: Negative for intraepithelial lesion or malignancy. [facility] LMP: 12/27/20 [facility] Prev. BX: NONE [facility]IVEN [facility] Prev. PAP: NONE [facility]IV[facility] Review Ict Developer : SEE COMMENT [facility] Comment: KF, CT(ASCP) CT screening location: [place] [address] SOURCE: None given [facility] Statement Of Adequacy: SEE COMMENT [facility] Comment: Satisfactory for evaluation. Endocervical/transformation zone component present. 12/31/2020 4:32 PM EDT Peg Bowen [facility] LAB PATHOLOGY ORDERABLES Final Result Performing Organization Address [facility]/ZIP Co de Phone Number [facility] [address] * HPV mRNA E6/E7 (12/31/2020 4:32 PM EDT) HPV nRNA E6/E7 Not Detected Not Detected [facility] Comment: Methodology: Air Brake Worker-Mediated Amplification This assay detects E6/E7 viral messenger RNA (mRNA) from 14 high-risk HPV types (16,18,31,33,35,39,45,51,52,56,58,59,66,68). The analytical performance characteristics of this assay have been determined by [employer]. The modifications have not been cleared or approved by the FDA. This assay has been validated pursuant to the CLIA regulations and is used for clinical purposes. For additional information, please refer to http://education.[employer]/faq/MNN972g9 (This link if provided for information/ educational purposes only.) 12/31/2020 4:32 PM EDT Peg Andrés [facility] LAB BLOOD ORDERABLES Jeanette l Result Performing Organization Address [facility] Co de Phone Number [facility] [address] from Last 3 Months or Most Recently Relevant to Health Maintenance Insurance [facility] Care Teams Busgirl Relationship Specialty Start Date End Date Patricia Zheng MD [address] [place] [address] [place] [address] PCP - General Family Medicine 11/25/16
== END 2025-03-30 15:33 | disposition home or self-care (01) ==
LOC: HO.MAMMO 15:32
PROVIDERS: Visit Provider Pediatrics
DX: Z12.31 Encounter for screening mammogram for malignant neoplasm of breast (principal)
CPT/HCPCS: 77063; 77067

== ENCOUNTER 2025-04-10 15:01 | Outpatient (REF) | payer MEDICAID, OTHER, SELFPAY ==
--- NOTE | ~2025-04-10 | US_ITS ---
EXAMINATION: US PELVIS CLINICAL INFORMATION: Menorrhagia COMPARISON: None available. TECHNIQUE: Ultrasound of the pelvis is performed using both transabdominal and transvaginal transducers along with Doppler. Transvaginal imaging is performed due to inadequate visualization transabdominally. FINDINGS: Uterus: The uterus is anteverted and measures 7.1 x 4.9 x 5.5 cm. The double wall endometrial thickness is 3 mm. No endometrial fluid or mass. Partially calcified 1.5 x 1.8 x 1.6 cm fibroid in the intramural posterior uterine body. 1.5 x 1.8 x 1.4 cm partially calcified fibroid in the intramural anterior fundus. Small nabothian cysts in the cervix. Adnexa: Both ovaries are visualized. There is normal color flow to the adnexa. There is no ovarian torsion. There is no pelvic ascites or fluid collection. Right ovary measures 3.2 x 1.3 x 1.6 cm. Normal Left ovary measures 3 x 2.1 x 2 cm. Normal US/US pelvic and transvaginal IMPRESSION: Two small uterine fibroids measuring up to 1.8 cm. Normal endometrium and ovaries. Electronically signed by: Tamiko Sanders MD 04/10/2025 05:43 PM [facility]
--- OUTSIDE RECORDS SUMMARY | 2025-04-10 16:50 | XMS_ITS | Clinical Summary ---
Author Organization [facility] Address [address] [place] [address] Care Team Providers Care Cash Applications Clerk Name Role Phone Patricia Zheng Primary Care Provider [phone] Allergies Active Allergy Reactions Criticality Noted Date [...] Screening 05/10/2024 Depression Screening and Follow-Up 05/10/2024 ACTV8 of Health Annual Screening 05/10/2024 Influenza Vaccine (#1) 2024 , 03/23/2019, 05/16/2018, Additional history exists COVID-19 Vaccine ( season) 2025 07/03/2021, 10/18/2020, 09/20/2020 DTaP,Tdap,and Td Vaccines (2 - Td or Tdap) 05/16/2028 05/16/2018 HIV Screening Completed 01/02/2021 Pneumococcal Vaccine: Pediatric (0-5 Years) and At-Risk Patients (6-50 Years) Aged Out No longer eligible based on patient's age to complete this topic Insurance [facility] HS/FREE CARE Care Teams Cash Applications Clerk Relationship Specialty Start Date End Date Patricia Zheng [address] [place] [id number] PCP - General Internal Medicine 11/25/20
--- OUTSIDE RECORDS SUMMARY | 2025-04-10 16:50 | XMS_ITS | Encounter Summary ---
Author Organization [facility] [employer] Address [address] [facility] [address] [place] [address] Care Team Providers Care Permit Technician Name Role Phone Patricia Zheng MD Primary Care Provider [phone] Encounter Details Date Type Department Care Team ([facility] Contact Info) Description 02/16/2025 Results Follow-Up [facility] [address] [place], [place] [id number] Patricia Zheng MD [address] [place] [address] Vitamin B12/Folate, Serum Panel, Vitamin D, 25-Hydroxy, [...] documented as of this encounter Care Teams Permit Technician Relationship Specialty Start Date End Date Patricia Zheng MD [address] [place] [id number] PCP - General Family Medicine 11/25/16 documented as of this encounter
--- OUTSIDE RECORDS SUMMARY | 2025-04-10 16:50 | XMS_ITS | Encounter Summary ---
Author Organization [facility] Address [address] [facility] [address] [place] [address] Care Team Providers Care Roving Department Supervisor Name Role Phone Patricia Zheng MD Primary Care Provider [phone] Encounter Details Date Type Department Care Team ([facility] st Contact Info) Description 07/30/2022 Telephone [facility] [address] [place] [address] Patricia Zheng MD [address] [place] [address] Social History Tobacco Use Types Packs/Day Years [...] documented as of this encounter Care Teams Roving Department Supervisor Relationship Specialty Start Date End Date Patricia Zheng MD [address] [place] [address] PCP - General Family Medicine 11/25/16 documented as of this encounter
--- OUTSIDE RECORDS SUMMARY | 2025-04-10 16:50 | XMS_ITS | Clinical Summary ---
Author Organization [facility] Address [address] [place] [address] Care Team Providers Care Database Specialist Name Role Phone Lazara Foreman MD Primary Care Provider Surgical History Surgery Date Site/Laterality Comments CHOLECYSTECTOMY 2016 PROCEDURE: HISTORICAL CHOLECYSTECTOMY OTHER SURGICAL HISTORY 09/2016 PROCEDURE: GI ENDOSCOPIC ULTRASOUND; COMMENT: upper endoscopic ultrasound for drainage of pancreatic pseudocyst OTHER SURGICAL HISTORY 2016 PROCEDURE: INSERTION OF CHEST TUBE; COMMENT: left pleural effusion VAGINOSCOPY 2012 PROCEDURE: MT COLPOSCOPY CERVIX VAG LOOP ELTRD BX CERVIX [...] RESULTING AGENCY - 03/11/2018 12:50 PM EDT [id number] THINPREP PAP, IMAGED: NEGATIVE FOR SQUAMOUS INTRAEPITHELIAL LESION AND MALIGNANCY . RESULT OF APTIMA HIGH RISK HPV ASSAY: NEGATIVE (SEROTYPES 16,18,31,33,35,39,45,51,52,56,58,59,66,68) [place] ANTONIO(ASCP) (CASE ELECTRONICALLY SIGNED 03 11 2018) ADEQUACY: SATISFACTORY. ENDOCERVICAL/TRANSFORMATION ZONE COMPONENT PRESENT. SOURCE: THINPREP PAP HPV ANY DX: REFLEX 16 AND 18, CERVICAL, IMAGED: CLINICAL INFORMATION: HPV ANY DIAGNOSIS. , LMP 11/29/2017, PAP HX NEG [Z12.4] us Yumiko Rohan [facility] CYTOLOG[facility] ORDERABLES Final Result HISTORICAL TESTING LAB RESULTING AGENCY from Last 3 Months or Most Recently Relevant to Health Maintenance Care Teams Database Specialist Relationship Specialty Start Date End Date Lazara Foreman MD [address] [place] [address] PCP - General Internal Medicine 07/27/17
--- OUTSIDE RECORDS SUMMARY | 2025-04-10 16:51 | XMS_ITS | Clinical Summary ---
Author Organization [employer] Address [address] [place] [address] [address] [place] [address] Care Team Providers Care Global Compensation Analyst Name Role Phone Patricia Zheng MD Primary Care Provider [phone] Allergies Active Allergy Reactions Criticality Noted Date [...] Encounters Date Type Department Care Team Description 04/04/2025 Results Follow-Up [facility] [address] [place] [address] Maddie De Leon RN BI Mammogram Screening Tomosynthesis Bilateral 02/16/2025 Results Follow-Up [facility] [address] [place] [address] Patricia Zheng MD Vitamin B12/Folate, Serum Panel, Vitamin D, 25-Hydroxy, Total, Immunoassay, Iron And Total Iron Binding Capacity, Additional followed-up results: 3 02/13/2025 9:15 AM EDT Office Visit [facility] [address] [place] [address] Patricia Zheng MD Encounter for immunization (Primary Dx); Prediabetes; Breast cancer screening by mammogram; Vitamin D insufficiency; Normocytic anemia; Menorrhagia with regular cycle; Pterygium of eye, left 02/13/2025 Travel 02/12/2025 Telephone [facility] [address] [place] [address] Patricia Zheng MD Chart Prep 02/06/2025 Patient Outreach [address] [address] Patricia Zheng MD Pre-visit Planning (Pre visit planning LVM ) 01/29/2025 Results Follow-Up [facility] [address] [place] [address] Maddie De Leon RN POCT Urinalysis, Culture, Urine, Routine, CBC auto differential, Additional followed-up results: 5 01/29/2025 Orders Only [facility] [address] [place] [address] Patricia Zheng MD Anemia, unspecified type (Primary Dx) 01/25/2025 4:00 PM EDT Office Visit [facility] [address] [place] [address] Patricia Zheng MD Prediabetes (Primary Dx); Flank pain 01/25/2025 Travel 01/25/[address] [address] Patricia Zheng MD Nurse Triage from Last 3 Months Immunizations Immunization Administration [...] of 3 - 19+ 3-dose series) 2003 COVID-19 Vaccine ( season) 2025 07/03/2021, 10/18/2020, 10/18/2020, Additional history exists Cervical Cancer Screening 12/31/2025 HPV/Cotest 12/31/2025 12/31/2020 Pap Smear 12/31/2025 12/31/2020 Diabetes: Hemoglobin A1C 01/26/2026 025, 02/01/2024, 07/16/2022, Additional history exists Alcohol/Substance Use Screening 02/13/2026 02/13/2025 Depression Screening 02/13/2026 02/13/2025, 02/14/20 25 Disability Screening 02/13/2026 02/13/2025 SDOH Screening 02/13/2026 02/13/2025 Tobacco Screening 02/13/2026 02/13/2025 Mammogram 03/30/2027 03/30/2025, 1201/2022, 05/07/2022 DTaP/Tdap/Td Vaccines (2 - Td or Tdap) [...] Procedure Name Priority Date/Time Associated Diagnosis Comments BI MAMMOGRAM SCREENING TOMOSYNTHESIS BILATERAL Routine 03/30/2025 3:35 PM EST Breast cancer screening by mammogram POCT GLUCOSE Routine 02/13/2025 9:39 AM EDT [...] Routine 01/25/2025 4:31 PM EDT Flank pain ZZZ HISTORICAL HEPATITIS C AB W/REFL TO HCV RNA, QN, PCR Routine 01/02/2021 3:35 PM EDT HIV 1/2 ANTIGEN/ANTIBODY, FOURTH GENERATION W/RFL Routine 01/02/2021 3:35 PM EDT HPV MRNA E6/E7 Routine 12/31/2020 4:32 PM EDT THINPREP PAP Routine 12/31/2020 4:32 PM EDT from Last 3 Months or Most Recently Relevant to Health Maintenance Results * BI Mammogram Screening Tomosynthesis Bilateral (03/30/2025 3:35 PM EST) Anatomical Region Laterality Modality Breast Bilateral Mammography 03/30/2025 3:35 PM EST Narrative 04/02/2025 6:39 PM EST [facility] [address] [place] [address] Mammography Report Signed Patient: Chaparrita Torres MR#: [id number] 95 : 1985 Acct:[id number] Age/Sex: 39 / F ADM Date: 03/30/25 Loc: HO.MAMMO Attending Dr: Patricia Zheng MD Ordering Physician: Patricia Zheng MD Results: 0In complete- Need Additional Imaging Evaluation Date of Service: 03/30/25 Follow Up: Additional Imagi ng Procedure(s): MM tomosynthesis screening BI Accession Number(s): [id number] cc: Patricia Zheng MD Reason For Exam: 39 y/o for breast cancer screening EXAMINATION: MM SCREENING DIGITAL BREAST TOMOSYNTHESIS, BILATERAL CLINICAL INFORMATION: Screening. Asymptomatic. COMPARISON: May 07, 2022 TECHNIQUE: Digital breast tomosynthesis is performed in mediolateral oblique and craniocaudal views along with computer-aided detection (CAD). Synthesized 2D images are generated from the tomosynthesis. FINDINGS: BREAST COMPOSITION: The breasts are heterogeneously dense, which may obscure small masses. RIGHT BREAST: No significant masses, suspicious calcifications or other abnormalities are seen. LEFT BREAST: Focal asymmetry in the upper outer quadrant at approximately 5 cm from the nipple. No suspicious calcifications or other abnormalities are seen. MM/MM tomosynthesis screening BI IMPRESSION: RIGHT BREAST: Negative, no mammographic evidence of malignancy. Normal interval follow-up is recommended in 12 months. LEFT BREAST: Focal asymmetry in the upper outer quadrant posterior depth. ASSESSMENT: BI-RADS: Category 0: Incomplete - Need additional Imaging Evaluation RECOMMENDATION: 1. Additional views of the left breast 2. Targeted ultrasound if warranted after review of the additional views. 3. Radiology department staff will contact the patient for additional imaging. FOLLOW-UP: Additional Imaging required This examination should not preclude the clinical evaluation of a suspicious palpable abnormality. This patient's information was entered into a reminder system with a target due date for their next mammogram. Electronically signed by: Fabio Aguilar MD 04/02/2025 06:37 PM EST Dictated By: Fabio Aguilar MD Signed By: <Electronically signed by Fabio Aguilar MD in OV> 04/02/25 1837 DD/ 1535 TD/TT: 03/30/25 1551 Clinical Transformation Specialist: Procedure Note Donotmorganinterpreter, Image - 04/02/2025 [facility] [address] [place] [address] Mammography Report Signed Patient: Marcelo Torres#: [id number] 95 : 1985Acct:[id number] Age/Sex: 39 / FADM Date: 03/30/25 Loc: HO.MAMMO Attending Dr: Patricia Zheng MD Ordering Physician: Patricia Zheng MDResults: 0In complete- Need Additional Imaging Evaluation Date of Service: 03/30/25Follow Up: Additional Imagi ng Procedure(s): MM tomosynthesis screening BI Accession Number(s): [id number] cc: Patricia Zheng MD Reason For Exam: 39 y/o for breast cancer screening EXAMINATION: MM SCREENING DIGITAL BREAST TOMOSYNTHESIS, BILATERAL CLINICAL INFORMATION: Screening. Asymptomatic. COMPARISON: May 07, 2022 TECHNIQUE: Digital breast tomosynthesis is performed in mediolateral oblique and craniocaudal views along with computer-aided detection (CAD). Synthesized 2D images are generated from the tomosynthesis. FINDINGS: BREAST COMPOSITION: The breasts are heterogeneously dense, which may obscure small masses. RIGHT BREAST: No significant masses, suspicious calcifications or other abnormalities are seen. LEFT BREAST: Focal asymmetry in the upper outer quadrant at approximately 5 cm from the nipple. No suspicious calcifications or other abnormalities are seen. MM/MM tomosynthesis screening BI IMPRESSION: RIGHT BREAST: Negative, no mammographic evidence of malignancy. Normal interval follow-up is recommended in 12 months. LEFT BREAST: Focal asymmetry in the upper outer quadrant posterior depth. ASSESSMENT: BI-RADS: Category 0: Incomplete - Need additional Imaging Evaluation RECOMMENDATION: 1. Additional views of the left breast 2. Targeted ultrasound if warranted after review of the additional views. 3. Radiology department staff will contact the patient for additional imaging. FOLLOW-UP: Additional Imaging required This examination should not preclude the clinical evaluation of a suspicious palpable abnormality. This patient's information was entered into a reminder system with a target due date for their next mammogram. Electronically signed by: Fabio Aguilar MD 04/02/2025 06:37 PM [facility] Dictated By: Fabio Aguilar MD Signed By: <Electronically signed by Fabio Aguilar MD in OV> 04/02/25 5337 DD/ 1535 TD/TT: 03/30/25 1551 Clinical Transformation Specialist: Patricia Zheng MD IMG BI PROCEDURES Final Resul t * POCT Glucose (02/13/2025 9:39 AM EDT) Glucose Blood, POC 129 60 - 200 mg/dL Blood Capillary blood specimen / Unknown 02/13/2025 9:39 AM EDT Patricia Zheng MD POINT OF CARE TEST ENTER/EDIT ORDERABLES Final Result * Vitamin D, 25-Hydroxy, Total, Immunoassay (02/12/2025 11:42 AM EDT) Vitamin D 25-OH Total 31.9 >30 ng/mL [facility] Comment: Health Based Reference Values*< 20 ng/mL Pzknjooet84-48 ng/mL Insufficient> 30 ng/mL Sufficient*Casey LARRY. N [...] ORDERABLES Final Re sult Performing Organization Address [facility] Co de Phone Number [facility] [address] [place] [phone] * Vitamin B12/Folate, Serum Panel (02/12/2025 11:42 AM EDT) Vitamin B12 676 200 - 900 pg/mL [facility] Comment:NORMAL 200-900 PG/ML INDETERMINATE 160-199 PG/ML DEFICIENT < 160 PG/ML Folate 12.7 > or = 4.0 ng/mL [facility] Comment:Reference Values:> o r = [...] ORDERABLES Final Re sult Performing Organization Address [facility] Co de Phone Number [facility] [address] [place] [phone] * Iron And Total Iron Binding Capacity (02/12/2025 11:42 AM EDT) Iron 137 30 - 160 mcg/dL [facility] Total Iron Binding Capacity 401 228 - 428 mcg/dL [facility] Percent Iron Saturation 34 15 - 50 % [facility] Unsaturated Iron Binding 264 ug/dL [facility] Blood Venous blood specimen / Unknown 02/12/2025 11:42 AM EDT 02/12/2025 2:37 PM EDT Patricia Zheng MD LAB BLOOD ORDERABLES Final Re sult Performing Organization Address [facility] Co de Phone Number [facility] [address] [place] [phone] * (ABNORMAL) Sed Rate by Modified Westergren (02/12/2025 11:42 AM EDT) Erythrocyte Sedimentation Rate 32(H) 0 - 20 MM/HR [facility] Comment:Patients with polycy themia and many hemoglobin abnormalitiesmay have depressed sed rates whereas patients with anemiamay have elevated sed rates. Blood Venous blood specimen / Unknown 02/12/2025 11:42 AM EDT 02/12/2025 2:37 PM EDT Patricia Zheng MD LAB BLOOD ORDERABLES Final Re sult Performing Organization Address [facility] Phone Number [facility] [address] [place] [phone] * BOOGIE Screen,IFA, with Reflex to Titer and Pattern (02/12/2025 11:42 AM EDT) Anti Nuclear Antibody Screen NEGATIVE NEGATIVE [facility] Comment:BOOGIE IFA is a first [...] clinicallysuspected inflammatory myopathies.AC-0: NegativeInternational Consensus on BOOGIE Patterns(https://doi.org/10.1515/szqj-2013-9023)For additional information, please refer tohttp://education.CrossTx/faq/RIB613(This link is being provided for informational/educational purposes only.)THIS TEST WAS PERFORMED AT:[employer] [place] [phone] MARRERO MD BOOGIE Titer TNP [facility] BOOGIE Pattern TNP [facility] BOOGIE Titer 2 TNP [facility] BOOGIE Pattern 2 TNP [facility]ITER [facility] BOOGIE PATTERN 3 TNP [facility] Blood Venous blood specimen / Unknown 02/12/2025 11:42 AM EDT 02/12/2025 2:37 PM EDT Patricia Zheng MD LAB BLOOD ORDERABLES Final Re sult Performing Organization Address City/[facility]/ZIP Co de Phone Number [facility] [address] [place] [phone] * Ferritin (02/12/2025 11:42 AM EDT) Ferritin 17 10 - 250 ng/mL [facility] Blood Venous blood specimen / Unknown 02/12/2025 11:42 AM EDT 02/12/2025 2:37 PM EDT Patricia Zheng MD LAB BLOOD ORDERABLES Final Re sult Performing Organization Address [facility]/ZIP Co de Phone Number [facility] [address] [place] [phone] * TSH W/Reflex to FT4 (01/26/2025 2:32 PM EDT) TSH reflex Free T4 0.91 0.32 - 4.0 uIU/mL [facility] Blood Venous blood specimen / Unknown 01/26/2025 2:32 PM EDT 01/26/2025 5:54 PM EDT us Patricia Zheng MD LAB BLOOD ORDERABLES Final Re sult [facility] [address] [place] [address] [phone] * (ABNORMAL) CBC auto differential (01/26/2025 2:32 PM EDT) White Blood Count 9.1 4.8 - 10.8 X10*3/uL [facility] Red Blood Count 3.52(L) 4.20 - 5.50 X10*6/uL [facility] Hemoglobin 10.1(L) 12.0 - 16.0 g/dl [facility] Hematocrit 30.5(L) 37.0 - 47.0 % [facility] Mean Corpuscular Volume 86.6 80.0 - 98.0 fL [facility] Mean Corpuscular Hemoglobin 28.7 27.0 - 33.0 pg [facility] Mean Corpuscular HGB Conc 33.1 31.0 - 35.0 g/dl [facility] Red Cell Distribution Width 14.5 11.0 - 16.0 % [facility] Platelet Count 275 160 - 400 X10*3/uL [facility] Mean Platelet Volume 12.0 9.4 - 12.3 fL [facility] Neutrophils Percent Auto 62.4 45 - 73 % [facility] Imm Gran Pct Auto 0.4 0.0 - 0.4 % [facility] Lymphocytes Percent Auto 26.0 20 - 40 % [facility] Monocytes Percent Auto 8.7 2 - 11 % [facility] Eosinophils Percent Auto 2.2 0 - 4 % [facility] Basophils Percent Auto 0.3 0 - 2 % [facility] NRBC Pct Auto 0.0 0.0 - 0.2 /100WBC [facility] Neutrophils Absolute Auto 5.6 2.0 - 8.3 x10*3/uL [facility] Imm Gran Abs Auto 0.04(H) 0.00 - 0.03 X10*3/uL [facility] Lymphocytes Absolute Auto 2.4 1.2 - 4.9 X10*3/uL [facility] Monocytes Absolute Auto 0.8 0.1 - 1.2 X10*3/uL [facility] Eosinophils Absolute Auto 0.2 0.0 - 0.4 X10*3/uL [facility] Basophils Absolute Auto 0.0 0.0 - 0.2 X10*3/uL [facility] NRBC Abs Auto 0.000 0.0 - 0.012 X10*3/uL [facility] Blood Venous blood specimen / Unknown 01/26/2025 2:32 PM EDT 01/26/2025 5:49 PM EDT Patricia Zheng MD LAB BLOOD ORDERABLES Final Re sult Performing Organization Address [facility]/ZIP Co de Phone Number [facility] [address] [place] [address] [phone] * Lipase (01/26/2025 2:32 PM EDT) Lipase 13 8 - 78 U/L [facility] Blood Venous blood specimen / Unknown 01/26/2025 2:32 PM EDT 01/26/2025 5:54 PM EDT Patricia Zheng MD LAB BLOOD ORDERABLES Final Re sult Performing Organization Address [facility]/ZIP Co de Phone Number [facility] [address] [place] [phone] * Hemoglobin A1c (01/26/2025 2:32 PM EDT) Hemoglobin A1c 6.0 <6.0 % [facility] Comment:Hemoglobin A1C Refer ence Range Adults: 4.8 - 6.0 % Non diabetic: < 6.0 % Goal: < 7.0 %Additional Action Suggested: > 8.0 %Note: Hemoglobin A1c results are invalid for patients with abnormal amounts of HbF. Blood transfusions may impact the HbA1c concentration in the patient sample. Estimated Average Glucose 126 mg/dL [facility] Comment:eAG = Estimated ave rage glucose which is %A1C expressed asaverage glucose, using the formula of the Q8Q-MzuxtrkLetatrq Glucose study (ADAG), Diabetes Care, Vol.31,#8,2007 Blood Venous blood specimen / Unknown 01/26/2025 2:32 PM EDT 01/26/2025 5:49 PM EDT Patricia Zheng MD LAB BLOOD ORDERABLES Final Re sult Performing Organization Address [facility] Co de Phone Number [facility] [address] [place] [phone] * Hepatic Function Panel (01/26/2025 2:32 PM EDT) Bilirubin, Total 0.2 0.0 - 1.0 mg/dL [facility] Bilirubin, Direct <0.2 0.0 - 0.5 mg/dL [facility] Aspartate Amino Transferase 21 5 - 31 U/L [facility] Alanine Aminotransferase 16 0 - 31 U/L [facility] Total Protein 7.8 6.5 - 8.0 g/dL [facility] Albumin Level 4.0 3.5 - 5.0 g/dL [facility] Alkaline Phosphatase 101 39 - 117 U/L [facility] Blood Venous blood specimen / Unknown 01/26/2025 2:32 PM EDT 01/26/2025 5:54 PM EDT Patricia Zheng MD LAB BLOOD ORDERABLES Final Re sult Performing Organization Address [facility] de Phone Number [facility] [address] [place] [phone] * (ABNORMAL) Basic Metabolic Panel (01/26/2025 2:32 PM EDT) Sodium 139 135 - 145 mmol/L [facility] Potassium 3.9 3.3 - 5.1 mmol/L [facility] Chloride 104 96 - 108 mmol/L [facility] Carbon Dioxide 27 22 - 29 mmol/L [facility] Anion Gap 12 12 - 20 [facility] Urea Nitrogen (BUN) 11 9 - 16 mg/dL [facility] Creatinine, Serum 0.53 0.5 - 1.4 mg/dL [facility] Estimated Glomerular Filt Rate >60 [facility] Comment:Chronic Kidney Disea se: Estimated GFR < 60 mL/min/1.97q2Tnzyfp Kidney Disease: Estimated GFR < 15 mL/min/1.73m2 Glucose 119(H) 60 - 115 mg/dL [facility] Calcium 9.2 8.4 - 10.2 mg/dL [facility] Blood Venous blood specimen / Unknown 01/26/2025 2:32 PM EDT 01/26/2025 5:54 PM EDT Patricia Zheng MD LAB BLOOD ORDERABLES Final Re sult [facility] [address] [place] [phone] * (ABNORMAL) POCT Urinalysis (01/25/2025 4:35 [...] Media Lot # [id number] Lot# Expiration Date [id number] Urine 01/25/2025 4:35 PM EDT Patricia Zheng MD POINT OF CARE TEST ENTER/EDIT ORDERABLES Final Result * Culture, Urine, Routine (01/25/2025 4:31 PM EDT) Urine Urine specimen obtained by clean catch procedure / Unknown 01/25/2025 4:31 PM EDT 01/25/2025 5:35 PM EDT Comment:UACC Narrative [facility] - 01/27/2025 9:58 AM EDT Urine Culture Report Result Urine Culture 10,000 to 50,000 cfu/ml Urine Culture Mixed bacterial orion characteristic of Urine Culture urogenital contamination. Specimen Source: Urine clean catch us Patricia Zheng MD LAB MICROBIOLOGY - GENERAL OR DERABLES Final Result Performing Organization Address [facility]/ZIP Co de Phone Number [facility] [address] [place] [address] [phone] * HEPATITIS C AB W/REFL TO HCV RNA, QN, PCR (01/02/2021 3:35 PM EDT) HEPATITIS C ANTIBODY NON-REACT ALETHEA NON-REACT [facility] INDEX 0.01 <1.00 [facility] Comment: HCV antibody was non-reactive. There is no laboratory evidence of HCV infection. In most cases, no further action is required. However, if recent HCV exposure is suspected, a test for HCV RNA (test code 40801) is suggested. For additional information please refer to http://education.Hythiam.GTX Messaging/faq/GVO77e3 (This link is being provided for informational/ educational purposes only.) 01/02/2021 3:35 PM EDT us Peg Bowen CNM HISTORICAL/NON ORDERABLE LABS Final Result [facility] [address] * HIV 1/2 ANTIGEN/ANTIBODY,FOURTH GENERATION W/RFL (01/02/2021 3:35 PM EDT) HIV-1/2 ANTIGEN AND ANTIBODIES, 4TH GENERATION W/ REFLEX NON-REACT ALETHEA NON-REACT ALETHEA [facility] Comment: HIV-1 antigen and HIV-1/HIV-2 [...] purpose. For additional information please refer to http://education.The Scene/faq/QXX363 (This link is being provided for informational/ educational purposes only.) The performance of this assay has not been clinically validated in patients less than 2 years old. 01/02/2021 3:35 PM EDT Peg Bowen [facility] LAB BLOOD ORDERABLES Jeanette conway Result [facility] [address] [place] [address], * THINPREP PAP (12/31/2020 4:32 PM EDT) Clinical Information: None given [facility] COMMENT SEE COMMENT [facility] [...] along with historic and current clinical information. Skin Therapist : SEE COMMENT [facility] Comment: DMM, CT(ASCP) CT screening location: [address] [address] Interpretation/R esult: Negative for intraepithelial lesion or malignancy. [facility] LMP: 12/27/20 [facility] Prev. BX: NONE GIVEN [facility] Prev. PAP: NONE GIVEN [facility] ON [facility] Review Skin Therapist : SEE COMMENT [facility] Comment: KF, CT(ASCP) CT screening location: [facility] [place] [address] SOURCE: None given [facility] Statement Of Adequacy: SEE COMMENT [facility] Comment: Satisfactory for evaluation. Endocervical/transformation zone component present. 12/31/2020 4:32 PM EDT Peg Bowen [facility] LAB PATHOLOGY ORDERABLES Final Result Performing Organization Address [facility] Co de Phone Number [facility] [address] * HPV mRNA E6/E7 (12/31/2020 4:32 PM EDT) HPV nRNA E6/E7 Not Detected Not Detected [facility] Comment: Methodology: Director Speech-Mediated Amplification This assay detects E6/E7 viral messenger RNA (mRNA) from 14 high-risk HPV types (16,18,31,33,35,39,45,51,52,56,58,59,66,68). The analytical performance characteristics of this assay have been determined by [employer]. The modifications have not been cleared or approved by the FDA. This assay has been validated pursuant to the CLIA regulations and is used for clinical purposes. For additional information, please refer to http://education.The Scene/faq/XTZ982o2 (This link if provided for information/ educational purposes only.) 12/31/2020 4:32 PM EDT Peg Bowen [facility] LAB BLOOD ORDERABLES Jeanette l Result Performing Organization Address [facility] Co de Phone Number [facility] [address] from Last 3 Months or Most Recently Relevant to Health Maintenance Insurance HSN FULL [facility] LIMITED Care Teams Global Compensation Analyst Relationship Specialty Start Date End Date Patricia Zheng MD [address] [place] [id number] PCP - General Family Medicine 11/25/16
== END 2025-04-10 15:02 | disposition home or self-care (01) ==
LOC: HO.US 15:01
PROVIDERS: PCP Pediatrics; Visit Provider Pediatrics
DX: N92.0 Excessive and frequent menstruation with regular cycle (principal); D64.9 Anemia, unspecified
CPT/HCPCS: 76830; 76856

== ENCOUNTER → 2025-04-10 15:03 | Outpatient (BNV) | payer MEDICAID, SELFPAY | PROVIDERS: PCP Pediatrics; Visit Provider Radiology Diagnostic Radiology | DX: D25.9 Leiomyoma of uterus, unspecified (principal); N92.0 Excessive and frequent menstruation with regular cycle | CPT/HCPCS: 76830 ==

== ENCOUNTER 2025-04-13 09:41 | Outpatient (REF) | payer MEDICAID, OTHER, SELFPAY ==
--- NOTE | ~2025-04-13 | US_ITS ---
EXAMINATION: MM DIAGNOSTIC DIGITAL BREAST TOMOSYNTHESIS, LEFT Limited left breast ultrasound. CLINICAL INFORMATION: Call back from screening for focal asymmetry in the upper outer left breast posterior depth. COMPARISON: Mammography: Prior relevant imaging on PACS. TECHNIQUE: Digital breast tomosynthesis is performed in both the craniocaudal and mediolateral oblique views along with computer-aided detection (CAD). Synthesized 2D images are generated from the tomosynthesis. FINDINGS: The breasts are heterogeneously dense, which may obscure small masses. Focal asymmetry in the upper outer breast partially effaces on additional imaging projections. No suspicious calcifications or other abnormal findings. Targeted color Doppler ultrasound scanning in the entire lateral breast upper outer quadrant and lower outer quadrant 1-4 o'clock demonstrates normal fibroglandular breast tissue. There is no sonographic abnormal finding. US/US Breast LT Limited Mamm Only IMPRESSION: Focal asymmetry in the upper outer breast which partially effaces and without sonographic correlate. Recommend 6 month follow-up left mammography for further evaluation of stability. ASSESSMENT: BI-RADS Category 3: Probably benign RECOMMENDATION: 6 Month F/U Results were provided to the patient at time of visit by the technologist. This patient's information was entered into a reminder system with a target due date for their next mammogram. Electronically signed by: Fatmata Moody DO 04/13/2025 12:13 PM [facility]
== END 2025-04-13 09:42 | disposition home or self-care (01) ==
LOC: HO.MAMMO 09:41
PROVIDERS: PCP Pediatrics; Visit Provider Pediatrics
DX: Z12.31 Encounter for screening mammogram for malignant neoplasm of breast (principal)
CPT/HCPCS: 76642; 77061; 77065

== ENCOUNTER → 2025-04-13 09:45 | Outpatient (BNV) | payer SELFPAY | PROVIDERS: PCP Pediatrics; Visit Provider Internal Medicine | DX: R92.8 Other abnormal and inconclusive findings on diagnostic imaging of breast (principal) | CPT/HCPCS: 76642; 77061; 77065 ==